=== PATIENT | female | born 1950 | race Caucasian/White ===

== ENCOUNTER → 2017-06-28 14:43 | Outpatient (POV) | payer MEDICARE, SELFPAY | PROVIDERS: Family Provider Family Medicine; PCP Family Medicine; Visit Provider Dermatology | DX: Z00.00 Encounter for general adult medical examination without abnormal findings (principal) ==

== ENCOUNTER → 2017-07-09 09:59 | Outpatient (POV) | payer MEDICARE, SELFPAY | PROVIDERS: Visit Provider Physician Assistant | DX: Z00.00 Encounter for general adult medical examination without abnormal findings (principal) ==

== ENCOUNTER → 2017-10-11 11:56 | Outpatient (CLI) | payer MEDICARE, OTHER, SELFPAY ==
--- NOTE | 2017-10-11 12:03 | XR_ITS ---
XR ankle LT min 3V Ordering Physician: Dominic Kelley MD Patient Age: 67 years: Female HISTORY: ITS.REASON: LEFT ANKLE PAIN AND JOINTS OF LEFT FOOT Ankle pain with history of fracture. TECHNIQUE: 3 views left ankle. COMPARISON :June FINDINGS Previous open are evident of the distal fibula. Metallic plate secured by 5 screws passing through it is seen at the distal fibula and lateral malleolus.. Additional oblique screw is seen at a more AP projection through the distal bone. There appear to be good healing here at the lateral malleolus with no fracture nor loosening.. The ankle mortise appears intact. The medial malleolus intact. Subtalar region unremarkable on plain film. Plantar calcaneal spur measuring 8.5 mm noted. IMPRESSION previous ORIF distal fibular/lateral malleolar fracture. Appearance appears stable since 2012. Stable appearance with Good healing at the fracture site. Ankle mortise well-maintained. No discrete abnormalities. Plantar calcaneal spur.
--- NOTE | 2017-10-11 12:03 | XR_ITS ---
XR wrist RT min 3V Ordering Physician: Dominic Kelley MD Patient Age: 67 years: Female HISTORY: ITS.REASON: RIGHT WRIST PAIN . No injury. Right wrist pain TECHNIQUE: 3 views right wrist COMPARISON :No prior studies FINDINGS Prominent arthritic changes are seen at the first carpal-metacarpal joint. Narrowing sclerosis hypertrophic changes along with some subchondral cysts seen here reflects such. Slight arthritic changes are seen at the articulation between the navicular and the trapezium here at the radial aspect of the wrist. -- There is a relative ulnar negative anatomical variant -this with relative short ulna versus the radius. With this we also see developing e arthritic changes articulation between the radius and this slightly short ulna..-Some hypertrophy features mild sclerosis along with subchondral cystic feature seen here. There are also some other ovoid dystrophic calcifications/ossifications seen posterior to the distal ulna possibly from old injury.- Do not believe they are related to tophi or other such type calcifications but rather a more likely areas of ossification. These may be palpable one measures nearly 1 cm the other slightly smaller compared dorsal to the distal ulna and dorsal wrist The carpals themselves with fairly normal relationships but we do see some scattered cystic changes in part related to degenerative subchondral cyst at the proximal hamate, proximal navicular. 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 Ulnar negative variant noted. ... With this there are Associated arthritic changes where the ulnar now articulates with the distal radius. ... Also some ovoid calcifications or dystrophic calcification posterior to the distal ulna,. These may be palpable 2. Prominent arthritic changes at first carpal-metacarpal joint. Typical arthritic appearance of at this typical site for degenerative arthritic change.. 3. Scattered subchondral, degenerative cyst at the carpals. Carpals with normal relationships otherwise
== END ==
PROVIDERS: PCP Family Medicine; Visit Provider Family Medicine
DX: M25.531 Pain in right wrist (principal); M25.572 Pain in left ankle and joints of left foot
CPT/HCPCS: 73110; 73610

== ENCOUNTER → 2017-11-15 09:33 | Outpatient (CLI) | payer MEDICARE, OTHER, SELFPAY ==
--- NOTE | 2017-11-15 09:35 | XR_ITS ---
XR elbow RT min 3V HISTORY: Pain following injury, follow-up abnormal radiograph with fat pad ITS.REASON: follow up ORDERING PHYSICIAN: Brandon Bhatt MD PATIENT AGE: 67 years COMPARISON: 11/06/2017 FINDINGS: No acute fracture is evident. The displaced anterior fat pad has improved. There is some spurring of the radial neck and the coronoid process. IMPRESSION: No obvious fracture.
== END ==
PROVIDERS: PCP Family Medicine; Visit Provider Orthopaedic Surgery
DX: S53.401A Unspecified sprain of right elbow, initial encounter (principal)
CPT/HCPCS: 73080

== ENCOUNTER → 2017-11-21 10:06 | Outpatient (CLI) | payer MEDICARE, OTHER, SELFPAY ==
[2017-11-21 10:33] LABS: Creatinine,Urine Random 24 mg/dL (20-320)
[2017-11-21 10:40] LABS: Hemoglobin A1C 5.6 % (0.0-7.0)
[2017-11-21 11:04] LABS: Alanine Aminotransferase 33 U/L (12-78); Albumin Level 3.8 gm/dL (3.4-5.0); Albumin/Globulin Ratio 1.1 (1.1-1.8); Alkaline Phosphatase 185 U/L (46-116); Anion Gap 11.2 mEq/L (5-15); Aspartate Amino Transferase 16 U/L (15-37); Bilirubin,Total 0.5 mg/dL (0.2-1.0); Blood Urea Nitrogen 18 mg/dL (7-18); Calcium 9.1 mg/dL (8.5-10.1); Carbon Dioxide 31 mmol/L (21.0-32.0); Chloride 102 mmol/L (98-107); Chol/HDL Ratio 3.5 (1-3.5); Cholesterol 210 mg/dL (140-200); Creatinine,Serum 1.01 mg/dL (0.55-1.02); Estimated Glomerular Filt Rate 54 ml/min (>60); Free T4 (Free Thyroxine) 1.23 ng/dl (0.76-1.46); GFR (African American) 66 ML/MIN (>60); Globulin 3.5 gm/dl (1.3-3.2); Glucose 102 mg/dL (74-106); HDL Cholesterol 60 mg/dL (29-89); LDL Cholesterol 118 mg/dL (0-130); Potassium 4.2 mmoL/L (3.5-5.1); Sodium 140 mmol/L (136-145); Thyroid Stimulating Hormone 1.67 uIU/ml (0.358-3.740); Total Protein,Serum 7.3 gm/dL (6.4-8.2); Triglycerides 161 mg/dL (30-200); VLDL Cholesterol 32 mg/dL (0-40)
[2017-11-23 13:22] LABS: Microalbumin, Urine <3.0 ug/mL (Not Estab.)
== END ==
PROVIDERS: PCP Family Medicine; Visit Provider Family Medicine
DX: E03.9 Hypothyroidism, unspecified (principal); I10 Essential (primary) hypertension; R73.01 Impaired fasting glucose; E78.2 Mixed hyperlipidemia
CPT/HCPCS: 36415; 80053; 80061; 82043; 82570; 83036; 84439; 84443

== ENCOUNTER → 2017-12-07 08:46 | Outpatient (CLI) | payer MEDICARE, OTHER, SELFPAY ==
--- NOTE | 2017-12-07 08:49 | XR_ITS ---
XR elbow RT min 3V HISTORY: Pain following injury, follow-up abnormal radiograph ITS.REASON: follow up ORDERING PHYSICIAN: Brandon Bhatt MD PATIENT AGE: 67 years COMPARISON: 11/15/2017 FINDINGS: There is now evidence of a nondisplaced fracture involving the neck of the radius with some mild sclerosis of the fracture line. No other significant anomalies are evident. IMPRESSION: Nondisplaced transverse fracture of the neck of the radius with mild sclerosis of the fracture site.
== END ==
PROVIDERS: PCP Family Medicine; Visit Provider Orthopaedic Surgery
DX: S53.401A Unspecified sprain of right elbow, initial encounter (principal)
CPT/HCPCS: 73080

== ENCOUNTER → 2018-01-17 08:34 | Outpatient (CLI) | payer MEDICARE, SELFPAY ==
--- NOTE | 2018-01-17 09:00 | MM_ITS ---
MM Dig screening mamm BI w/CAD CAD Screening COMPARISON: Digital mammograms with CAD 01/15/2017 and 01/13/2016 INDICATION: There is no personal or family history of breast cancer there is been previous biopsy for benign disease left breast. TECHNIQUE: Standard CC and MLO images were obtained. R2 CAD reviewed. FINDINGS: Moderate fibroglandular densities are seen in the central portions of both breast and the findings are bilateral and symmetrical. There is a stable benign-appearing nodular density right breast. There is a biopsy clip left breast. There are 2 mole markers left breast. There is no suspicious lesion in either breast and there are no suspicious microcalcifications. IMPRESSION: Fibrofatty parenchyma no suspicious lesion seen BI-RADS Category: 2 Benign Finding(s) RECOMMENDED FOLLOW-UP: 1YR - 1 YEAR FOLLOW-UP (A letter has been sent to the patient regarding results of the study.)
== END ==
PROVIDERS: PCP Family Medicine; Visit Provider Family Medicine
DX: Z12.31 Encounter for screening mammogram for malignant neoplasm of breast (principal)
CPT/HCPCS: 77067

== ENCOUNTER → 2018-08-14 12:11 | Outpatient (CLI) | payer MEDICARE, OTHER, SELFPAY ==
--- NOTE | 2018-08-14 12:16 | XR_ITS ---
XR hip LT 2-3V w/pelvis HISTORY: ITS.REASON: LT HIP PAIN ORDERING PHYSICIAN: Dominic Kelley MD PATIENT AGE: 68 years COMPARISON: None FINDINGS: There are moderate osteoarthritic changes of the left hip with decrease in the joint space along with osteosclerosis and osteophyte formation. No fracture or dislocation. No lytic or blastic change. There is moderate osteoarthritis of the right hip is well with more bony hypertrophy on the right. IMPRESSION: Moderate osteoarthritis of both hips. No acute fracture.
== END ==
PROVIDERS: PCP Family Medicine; Visit Provider Family Medicine
DX: M25.552 Pain in left hip (principal)
CPT/HCPCS: 73502

== ENCOUNTER → 2018-09-23 18:05 | Outpatient (CLI) | payer MEDICARE, OTHER, SELFPAY | PROVIDERS: Visit Provider Podiatrist | DX: L81.9 Disorder of pigmentation, unspecified (principal) | CPT/HCPCS: 87070; 87205 ==

== ENCOUNTER → 2019-01-20 09:15 | Outpatient (CLI) | payer MEDICARE, OTHER, SELFPAY ==
--- NOTE | 2019-01-20 09:23 | MM_ITS ---
PROCEDURE: MM DIG SCREENING MAMM BI W/CAD CLINICAL INDICATION: SCREENING There is no personal or family history of breast cancer. There has been a previous biopsy left breast for benign disease. COMPARISON: [facility] DIG MAMM-SCREEN CHAITANYA from 01/13/2016 [facility] DIG MAMM-SCREEN CHAITANYA W/CAD from 01/15/2017 [facility] MM Dig screening mamm BI w/CAD from 01/17/2018 TECHNIQUE: Standard CC and MLO images were obtained. R2 CAD reviewed. FINDINGS: Moderate fibroglandular densities are seen in the central portions of both breasts and the findings of bilateral and symmetrical. There is a biopsy clip left breast there is a mole marker near the axillary tail left breast. There is a stable tiny nodular benign-appearing density upper-outer quadrant right breast and a similar stable benign-appearing nodular density central portion right breast. There is no suspicious lesion and no suspicious microcalcifications. IMPRESSION: Moderate breast density with no suspicious lesions seen BI-RAD Category: 2 Benign Finding(s) FOLLOW-UP: 1YR 1 Year Follow-up (A letter has been sent to the patient regarding results of the study.) Dictated by: Dr. Kirill Ceja MD 01/21/2019 11:[address] Kirill Ceja MD in [place] 01/21/2019 11:07
--- NOTE | 2019-01-20 09:23 | XR_ITS ---
PROCEDURE: XR DEXA AXIAL SKELETON CLINICAL HISTORY: OSTEOPORSIS COMPARISON: No exams were available for comparison FINDINGS: L1-L4 density has a T-score of -0.1 with a density of 1.168 grams/centimeters sq. Left hip density is 0.889 grams/centimeters sq with T-score -1.1 IMPRESSION: Osteopenia with moderate fracture risk. Treatment advised. Suggest follow-up exam December 2020 Dictated by: Niko Fowler MD 01/20/2019 15:39 Electronically signed by Niko Fowler MD in [place] 01/20/2019 15:39
== END ==
PROVIDERS: PCP Family Medicine; Visit Provider Family Medicine
DX: Z12.31 Encounter for screening mammogram for malignant neoplasm of breast (principal); Z13.820 Encounter for screening for osteoporosis; M81.0 Age-related osteoporosis without current pathological fracture
CPT/HCPCS: 77067; 77080

== ENCOUNTER → 2020-01-22 09:12 | Outpatient (CLI) | payer MEDICARE, SELFPAY ==
--- NOTE | 2020-01-22 09:15 | MM_ITS ---
PROCEDURE: MM DIG SCREENING MAMM BI W/CAD Digital Breast Tomosynthesis Included CLINICAL INDICATION: SCREENING There is no personal or family history of breast cancer. There has been a previous biopsy left breast for benign disease. COMPARISON: MG [facility] DIG MAMM-SCREEN CHAITANYA W/CAD from 01/15/2017 MG [facility] MM Dig screening mamm BI w/CAD from 01/17/2018 MG MM DIG SCREENING MAMM BI W/CAD from 01/20/2019 TECHNIQUE: Standard CC and MLO images and 3D Tomosynthesis was obtained. R2 CAD reviewed. FINDINGS: The breasts are composed primarily of with focal fibroglandular elements in the central portions of both breast. There is a biopsy clip left breast. There is a mole marker low in the axilla left breast. There is a stable tiny nodular benign-appearing density right breast. There is no suspicious lesion in either breast and no suspicious microcalcifications. IMPRESSION: Stable exam with no suspicious lesions seen BI-RAD Category: 2 Benign Finding(s) FOLLOW-UP: 1YR 1 Year Follow-up (A letter has been sent to the patient regarding results of the study.) Dictated by: Dr. Kirill Ceja MD 01/23/2020 10:47 Dr. Kirill Ceja MD in [place] 01/23/2020 10:47
== END ==
PROVIDERS: PCP Family Medicine; Visit Provider Family Medicine
DX: Z12.31 Encounter for screening mammogram for malignant neoplasm of breast (principal)
CPT/HCPCS: 77063; 77067

== ENCOUNTER → 2020-06-28 14:15 | Outpatient (CLI) | payer MEDICARE, SELFPAY ==
--- NOTE | 2020-06-28 14:21 | XR_ITS ---
PROCEDURE: XR KNEE RT 3V CLINICAL INDICATION: ACUTE PAIN OF RT KNEE COMPARISON: CR KNEE3L KNEE-3 VIEWS-LT from 05/25/2015 FINDINGS: No fracture or dislocation. No lytic or blastic change. There is normal mineralization. There are minimal osteoarthritic changes of the medial compartment. Minimal spurring noted of the tibial spines. Other findings:There is a small suprapatellar effusion suspected IMPRESSION: Minimal osteoarthritic change with small knee joint effusion Dictated by: Niko Fowler MD 06/28/2020 14:57 Niko Fowler MD in [place] 06/28/2020 14:57
== END ==
PROVIDERS: PCP Family Medicine; Visit Provider Family Medicine
DX: M25.561 Pain in right knee (principal)
CPT/HCPCS: 73562

== ENCOUNTER → 2021-01-24 09:27 | Outpatient (CLI) | payer MEDICARE, SELFPAY ==
--- NOTE | 2021-01-24 09:28 | MM_ITS ---
PROCEDURE INFORMATION: Exam: MG Bilateral Screening 3D Mammography Exam date and time: 01/24/2021 9:28 AM Age: 70 years old Clinical indication: Encounter for screening mammogram for malignant neoplasm of breast TECHNIQUE: Imaging protocol: Bilateral screening tomosynthesis and 2D mammography including computer-aided detection (CAD) when performed. COMPARISON: 1. MG MM DIG SCREENING MAMM BI W/CAD 01/22/2020 9:36 AM 2. MG MM DIG SCREENING MAMM BI W/CAD 01/20/2019 9:43 AM FINDINGS: MAMMOGRAPHY: Breast composition: The breast tissue is heterogeneously dense, which may obscure small masses. Mass: None. Architectural distortion: None. Calcifications: No suspicious calcifications. Asymmetric density: None. Skin thickening: None. Axillary adenopathy: None. IMPRESSION: No mammographic evidence of malignancy. Annual screening is recommended unless otherwise clinically indicated. ASSESSMENT: BI-RADS Category 1: Negative
== END ==
PROVIDERS: PCP Family Medicine; Visit Provider Family Medicine
DX: Z12.31 Encounter for screening mammogram for malignant neoplasm of breast (principal)
CPT/HCPCS: 77063; 77067

== ENCOUNTER → 2021-07-20 11:48 | Outpatient (CLI) | payer MEDICARE, SELFPAY ==
--- NOTE | 2021-07-20 11:55 | XR_ITS ---
FINAL REPORT CLINICAL HISTORY: PAIN IN LEFT FOOT, top of foot, there is a knot and swelling on top of mid foot, no known injury, ?stress fx FINDINGS: 3 views of the left foot were obtained. There are sideplate and screws securing the distal fibula. There is no acute fracture or dislocation. The joint spaces are intact. There is a moderate plantar spur. The soft tissues are unremarkable. IMPRESSION: No acute process. Reviewed, Interpreted and Dictated by Sanju Ocampo MD Transcribed by Henrik Vyas Authenticated by Sanju Ocampo MD on 07/20/2021 01:32:16 PM [facility]
== END ==
PROVIDERS: PCP Family Medicine; Visit Provider Family Medicine
DX: M79.672 Pain in left foot (principal)
CPT/HCPCS: 73630

== ENCOUNTER → 2022-01-25 09:13 | Outpatient (CLI) | payer MEDICARE, SELFPAY ==
--- NOTE | 2022-01-25 09:16 | MM_ITS ---
PROCEDURE INFORMATION: Exam: MG Bilateral Screening 3D Mammography Exam date and time: 01/25/2022 9:11 AM Age: 71 years old Clinical indication: Screening examination TECHNIQUE: Imaging protocol: Bilateral Screening tomosynthesis and 2D mammography including computer-aided detection (CAD) when performed. COMPARISON: 1. MG MM DIG SCREENING MAMM BI W/CAD 01/24/2021 9:45 AM 2. MG MM DIG SCREENING MAMM BI W/CAD 01/22/2020 9:36 AM 3. MG MM DIG SCREENING MAMM BI W/CAD 01/20/2019 9:43 AM 4. MG [facility] MM Dig screening mamm BI w/CAD 01/17/2018 8:57 AM FINDINGS: MAMMOGRAPHY: Breast composition: The breast is heterogeneously dense, which may obscure small masses. Mass: Stable benign-appearing subcentimeter nodules are present in the bilateral breasts. No new or morphologically suspicious nodule has developed to suggest malignancy. Architectural distortion: No new or suspicious architectural distortion. Calcifications: No new or suspicious calcifications are present Asymmetric density: No new or suspicious asymmetric density is present Skin thickening: None. Axillary adenopathy: None. IMPRESSION: No mammographic evidence of malignancy. Recommend annual screening mammography unless otherwise clinically indicated. ASSESSMENT: BI-RADS category 2: Benign
== END ==
PROVIDERS: PCP Family Medicine; Visit Provider Family Medicine
DX: Z12.31 Encounter for screening mammogram for malignant neoplasm of breast (principal)
CPT/HCPCS: 77063; 77067

== ENCOUNTER → 2023-01-29 08:07 | Outpatient (CLI) | payer MEDICARE, SELFPAY ==
--- NOTE | 2023-01-29 08:11 | MM_ITS ---
PROCEDURE INFORMATION: Exam: MG Bilateral Screening 3D Mammography Exam date and time: 01/29/2023 8:10 AM Age: 72 years old Clinical indication: Screening examination; Family history of breast cancer in daughter; Daughter's age: 44 years TECHNIQUE: Imaging protocol: Bilateral Screening tomosynthesis and 2D mammography including computer-aided detection (CAD) when performed. COMPARISON: 1. MG MM DIG SCREENING MAMM BI W/CAD 01/25/2022 9:11 AM 2. MG MM DIG SCREENING MAMM BI W/CAD 01/24/2021 9:45 AM 3. MG MM DIG SCREENING MAMM BI W/CAD 01/22/2020 9:36 AM 4. MG MM DIG SCREENING MAMM BI W/CAD 01/20/2019 9:43 AM MG DIGMAMMS MAMMOGRAM SCREEN-CHEMICAL LABORATORY CHIEF N/C 01/06/2008 11:27 AM FINDINGS: MAMMOGRAPHY: Breast composition: The breasts are heterogeneously dense, which may obscure small masses. Mass: No suspicious mass. Architectural distortion: None. Calcifications: No suspicious calcifications. Asymmetric density: No developing asymmetry. Skin thickening: None. Axillary adenopathy: None. Other: Left biopsy clip. IMPRESSION: No mammographic evidence of malignancy. Annual screening is recommended unless otherwise clinically indicated. ASSESSMENT: BI-RADS Category 2: Benign
== END ==
PROVIDERS: PCP Family Medicine; Visit Provider Family Medicine
DX: Z12.31 Encounter for screening mammogram for malignant neoplasm of breast (principal)
CPT/HCPCS: 77063; 77067

== ENCOUNTER → 2023-02-14 11:27 | Outpatient (CLI) | payer MEDICARE, SELFPAY ==
[2023-02-14 11:33] LABS: Influenza A, PCR Not Detected (NotDetected); Influenza B, PCR Not Detected (NotDetected)
[2023-02-14 14:16] LABS: Coronavirus 19, PCR Detected (NotDetected)
== END ==
PROVIDERS: PCP Family Medicine; Visit Provider Physician Assistant
DX: U07.1 COVID-19 (principal); R50.9 Fever, unspecified; R42 Dizziness and giddiness; R11.0 Nausea
CPT/HCPCS: 87636

== ENCOUNTER 2024-06-29 14:00 | Emergency (ER) | payer MEDICARE, SELFPAY ==
[2024-06-29 14:09] VITALS: BP 183/94; PULSE 63; RESP 15; TEMP 36.5; O2SAT 95; BMI 37.9
--- NOTE | 2024-06-29 14:25 | HMH.EDGENADL ---
Discharge Plan Disposition Patient Disposition: Home, Self-Care Chief Complaint: Skin/Abscess/Foreign Body Prescriptions Prescriptions: No Action amlodipine 5 mg tablet 5 mg PO Qty: 90 Patient Comments: TAKE 1 TABLET BY MOUTH EVERY DAY losartan 100 mg tablet 100 mg PO Qty: 90 Patient Comments: TAKE 1 TABLET BY MOUTH EVERY DAY cyanocobalamin (vitamin B-12) 500 mcg tablet extended release 500 mcg PO DAILY hydrochlorothiazide 12.5 mg tablet 12.5 mg PO Qty: 90 Patient Comments: TAKE 1 TABLET BY MOUTH EVERY DAY naproxen 500 mg tablet 500 mg PO BID PRN (Reason: pain) bisoprolol-hydrochlorothiazide 1 EACH tablet 1 each PO DAILY levothyroxine 100 MCG tablet 100 mg PO DAILY ranitidine HCl 150 MG capsule 150 mg PO BID Referrals Follow up/Referrals: Dominic Kelley MD [Primary Care Provider] - See instructions Activity Restrictions/Add. Instructions Additional Instructions/Restrictions: At this time it was felt you are safe to be discharged home. If new or worsening symptoms please do not hesitate to return the emergency department. Clinical Impressions Clinical Impression: Tick bite Instructions Patient Instructions: DI for Skin Abscess Print Language Print Language: Russian Discharge ED Provider: Regulo Jenkins General Adult HPI General Chief complaint: Skin/Abscess/Foreign Body Stated complaint: Poss.tick in middle of back Time Seen by Provider: 06/29/24 14:11 Mode of Arrival: Ambulatory Source of Information: Patient Description of Symptoms (Recalled from ER Triage Doc. by RN): patient states she has a tick on her back unsure on how long it has been there History of Present Illness HPI narrative: Patient is 74-year-old female who presents emergency department for evaluation of possible tick bite. Unsure how long it has been on there it is on her back between her shoulder blades under her bra. They have been working outside. No other acute complaints at this time. Specifically no disseminated arthralgias or rashes reported. No chest pain reported. Related Data Home Medications ?Medication ?Instructions ?Recorded ?Confirmed bisoprolol 5 1 each PO DAILY Hypertension 11/06/17 10/17/18 mg-hydrochlorothiazide 6.25 mg tablet levothyroxine 100 mcg tablet 100 mg PO DAILY THYROID 11/06/17 10/17/18 ranitidine HCl 150 mg capsule 150 mg PO BID STOMACH 11/06/17 10/17/18 amlodipine 5 mg tablet 5 mg PO #90 tabs 09/23/18 10/17/18 cyanocobalamin (vitamin B-12) 500 500 mcg PO DAILY 09/23/18 10/17/18 mcg tablet,extended release hydrochlorothiazide 12.5 mg tablet 12.5 mg PO #90 tabs 09/23/18 10/17/18 losartan 100 mg tablet 100 mg PO #90 tabs 09/23/18 10/17/18 naproxen 500 mg tablet 500 mg PO BID PRN pain 09/23/18 10/17/18 Allergies Allergy/AdvReac Type Severity Reaction Status Date / Time codeine (CODEINE) Allergy Mild NA-NAUSEA/V Verified 10/17/18 08:22 OMITING PERRY INHIBITORS Allergy Mild TONGUE Uncoded 12/07/17 09:53 [facility] Disclaimer: The information contained in this section may have been updated after the patient was seen, as this information can be updated by other users. Social History Smoking Status: Never smoker alcohol intake: never current occupational status: retired Travel in the last 8 weeks: None Have you lived/traveled outside [place] in past 30 days?: No Contact w/someone who lives/traveled outside US past 30 days?: No Exposure to someone with infectious disease in past 14 days?: No Do you have a fever (greater than 100.4 F or 38 C)?: No Have you tested positive for COVID-19: No Exposed to someone with COVID-19 in past 14 days?: No Do you have a sore throat?: No Do you have a cough?: No Do you have any weakness?: No Do you have any diarrhea?: No Are you experiencing any unusual bleeding?: No Do you have any muscle aches/pain?: No Do you have any abdominal pain?: No Are you experiencing loss of taste or smell?: No Other Medical History Have you received the Flu Vaccine for this season: Yes Have you received the Pneumonia Vaccine: Yes ROS Obtained: Yes Systems reviewed as appropriate & no additional complaints except as documented Physical Exam General General appearance: alert and in no apparent distress Head Head exam: atraumatic and normocephalic Eye Eye exam: Present PERRL and EOMI ENT ENT exam: Present mucous membranes moist Neck Neck exam: Present normal inspection Chest Chest inspection: Present normal inspection and symmetric chest wall rise Respiratory Respiratory exam: Absent respiratory distress Cardiovascular Cardiovascular exam: Present regular rate and normal rhythm Abdominal Exam Abdominal exam: Present soft; Absent tenderness Back Exam Back exam: Present other (Erythematous papule over the back between the shoulder blades. No surrounding annular rash.) Neurological Exam Neurological exam: Present alert Psychiatric Psychiatric exam: Present normal affect Skin Skin exam: Present warm and dry Medical Decision Making Medical Records Screening: Per USPSTF and CDC recommendations, given the prevalence of disease in our region, it is our hospital?s policy to screen for HIV and viral Hepatitis for all patients aged 18 and over and those with ongoing risk factors. Mike Inquiry Pt receiving controlled substance: No Vital Signs: 06/29/24 14:09 Temperature 97.7 F Temperature Source Oral Pulse Rate [Right] 63 Respiratory Rate 15 Blood Pressure [Right Arm] 183/94 H Blood Pressure Mean [Right Arm] 123 Blood Pressure Source [Right Arm] Manual Cuff/ Palpation Blood Pressure Position [Right Arm] Sitting 02 Sat by Pulse Oximetry 95 Oxygen Delivery Method Room Air Orders (Tests/Meds): ED MEDICATIONS Discontinued Medications Generic Name Dose Route Start Last Admin Trade Name Freq PRN Reason Stop Dose Admin Doxycycline Hyclate 200 mg 06/29/24 14:25 Doxycycline Hycl 100 Mg Tablet PO 06/29/24 14:26 ONCE ONE ORDERS Category Date Time Status HIV Combo Stat Lab 06/29/24 14:18 Ordered Hepatitis C Ab Qual. W/ RFX Stat Lab 06/29/24 14:18 Ordered Medical Decision Narrative: In summary patient is a 74-year-old female with past medical history described above who presents emergency department for evaluation of tick bite. Patient is hemodynamically stable nontoxic-appearing upon arrival, afebrile. Tick was removed by nursing in triage. I inspected the tick they did get all body parts removed. The tick was not engorged. Given this postexposure prophylaxis for tickborne illness will be conducted with doxycycline 200 mg x 1 and full course is not warranted. Workup with labs and imaging was considered but is not needed at this time given no generalized symptoms will be deferred. Patient was discharged in stable condition. Critical Care Critical Care Time Critical Care Time: No
[2024-06-29 14:44] VITALS: BP 155/86; PULSE 16; RESP 15; TEMP 36.9
[2024-06-29] MEDS: DOXYCYCLINE HYCL 100 MG TABLET 200 MG PO (14:49)
--- OUTSIDE RECORDS SUMMARY | 2024-07-03 20:03 | XMS_ITS ---
Author Organization Unknown Allergies, Adverse Reactions and Alerts Date IsAllergic OnsetDate Allergen Reaction Type Severity Manuelito rgyCode Legacyallergictoid ReactionCode ReactionCodeSystemID 06/29 00:00 :00 1 Lisinopri l anaphylax is Aller gy [id number] 06/29 00:00 :00 1 Codeine stomach upset Side Effec ts 06/29 00:00 :00 1 Lisinopri l anaphylax is Aller gy [id number] 06/29 00:00 :00 1 Codeine stomach upset Side Effec ts 06/24 00:00 :00 1 Lisinopri l anaphylax is Aller gy [id number] 06/24 00:00 :00 1 Codeine stomach upset Side Effec ts 06/10 00:00 :00 1 Lisinopri l anaphylax is Aller gy [id number] 06/10 00:00 :00 1 Codeine stomach upset Side Effec ts 06/06 00:00 :00 1 Lisinopri l anaphylax is Aller gy [id number] 06/06 00:00 :00 1 Codeine stomach upset Side Effec ts 06/04 00:00 :00 1 Lisinopri l anaphylax is Aller gy [id number] 06/04 00:00 :00 1 Codeine stomach upset Side Effec ts 01/10 00:00 :00 1 Lisinopri l anaphylax is Aller gy [id number] 01/10 00:00 :00 1 Codeine stomach upset Side Effec ts 01/10 00:00 :00 1 Lisinopri l anaphylax is Aller gy [id number] 01/10 00:00 :00 1 Codeine stomach upset Side Effec ts 12/31 00:00 :00 1 Lisinopri l anaphylax is Aller gy [id number] 12/31 00:00 :00 1 Codeine stomach upset Side Effec ts 12/26 00:00 :00 1 Lisinopri l anaphylax is Aller gy [id number] 12/26 00:00 :00 1 Codeine stomach upset Side Effec ts 12/16 00:00 :00 1 Lisinopri l anaphylax is Aller gy [id number] 12/16 00:00 :00 1 Codeine stomach upset Side Effec ts 12/13 00:00 :00 1 Lisinopri l anaphylax is Aller gy [id number] 12/13 00:00 :00 1 Codeine stomach upset Side Effec ts 11/22 00:00 :00 1 Lisinopri l anaphylax is Aller gy [id number] 11/22 00:00 :00 1 Codeine stomach upset Side Effec ts 11/18 00:00 :00 1 Lisinopri l cough Side Effec ts [id number] 11/18 00:00 :00 1 Codeine 11/13 00:00 :00 1 Lisinopri l cough Side Effec ts [id number] 11/13 00:00 :00 1 Codeine 11/09 00:00 :00 1 Lisinopri l cough Side Effec ts [id number] 11/09 00:00 :00 1 Codeine 09/02 00:00 :00 1 Lisinopri l cough Side Effec ts [id number] 09/02 00:00 :00 1 Codeine 07/03 00:00 :00 1 Lisinopri l cough Side Effec ts [id number] 07/03 00:00 :00 1 Codeine
== END 2024-06-29 14:50 | disposition home or self-care (01) ==
PROVIDERS: Emergency Provider Emergency Medicine; PCP Family Medicine
DX: L53.8 Other specified erythematous conditions (principal); W57.XXXA Bitten or stung by nonvenomous insect and other nonvenomous arthropods, initial encounter
CPT/HCPCS: 99283

== ENCOUNTER 2025-01-01 08:50 | Outpatient (CLI) | payer MEDICARE, SELFPAY ==
--- NOTE | 2025-01-01 09:43 | MM_ITS ---
PROCEDURE INFORMATION: Exam: MG Bilateral Screening 3D Mammography Exam date and time: 01/01/2025 9:53 AM Age: 74 years old Clinical indication: Screening examination TECHNIQUE: Imaging protocol: Bilateral Screening tomosynthesis and 2D mammography including computer-aided detection (CAD) when performed. COMPARISON: MG MM DIG SCREENING MAMM BI W/CAD 01/29/2023 8:10 AM FINDINGS: MAMMOGRAPHY: Breast composition: There are scattered areas of fibroglandular density. Mass: None. Architectural distortion: None. Calcifications: No suspicious calcifications. Asymmetric density: None. Skin thickening: None. Axillary adenopathy: None. IMPRESSION: No mammographic evidence of malignancy. Annual screening is recommended unless otherwise clinically indicated. ASSESSMENT: BI-RADS Category 1: Negative.
--- NOTE | 2025-01-01 09:56 | XR_ITS ---
FINAL REPORT TECHNIQUE: Bone densitometry calculations of the lumbar spine and bilateral hips were obtained. CLINICAL HISTORY: SCREENING COMPARISON: None FINDINGS: Using L1-4, the bone mineral density of the spine is 1.062 g/cm2, corresponding to T-score of 0.1 and a Z score of 2.6. This is within the range of normal. Using the left hip, the bone mineral density of the femoral neck is 0.695 g/cm2, corresponding to a T-score of -1.4 and a Z-score of 0.8. This is within the range of osteopenia. Using the right hip, the bone mineral density of the femoral neck is 0.782 g/cm?, corresponding to a T-score of -0.6 and a Z-score of 1.5. This is within the range of normal. NOTE: T-score: Standard deviation compared with peak bone mass of young adult mean. *Following the recommendations of the International Society of Bone densitometry, classification of hip BMD is based on the lower of two T-scores; total hip or femoral neck. IMPRESSION: 1. Bone mineral density of the lumbar spine and right femoral neck within the range of normal. 2. Bone mineral density of the left femoral neck within the range of osteopenia. Reviewed, Interpreted and Dictated by Siobhan Hernández MD Transcribed by Yesenia Saba Authenticated and [facility]
== END 2025-01-01 23:59 | disposition home or self-care (01) ==
LOC: RAD 08:51
PROVIDERS: PCP Family Medicine; Visit Provider Family Medicine
DX: Z12.31 Encounter for screening mammogram for malignant neoplasm of breast (principal); R92.323 Mammographic fibroglandular density, bilateral breasts; Z13.820 Encounter for screening for osteoporosis; Z78.0 Asymptomatic menopausal state; M85.88 Other specified disorders of bone density and structure, other site
CPT/HCPCS: 77063; 77067; 77080

== ENCOUNTER 2025-02-07 22:57 | Emergency (ER) | payer MEDICARE, SELFPAY ==
--- OUTSIDE RECORDS SUMMARY | 2023-11-10 06:00 | XMS_ITS ---
Author Organization [facility] Address [address] [place] [id number] Care Team Providers Care Rn Liaison Name Role Phone Fortino Kelley Primary Care Provider [phone] FORTINO KELLEY Unavailable Unavailable Allergies Allergen (clinical drug ingredient) Drug/Non Drug Allergy documented on EMR Reaction Allergy Type Onset Date Status lisinopril Lisinopril cough Drug Allergy Activ e codeine Codeine Unknown Drug Allergy Active REASON FOR VISIT high blood pressure Medications Medication SIG (Take, Route, Frequency, Duration) Notes Start Date End Date Status Furosemide 20 MG 1 tab(s) orally once a day as needed; Duration: 30 day(s) 07/20/2021 Active Triamcinolone Acetonide 0.1 % 1 cinda applied topically 3 times a day 07/20/2021 Active Vitamin B 12 500 MCG 2 tab(s) orally onc e a day Active Omeprazole 40 MG 1 cap(s) orally once a day; Duration: 30 day(s) Active Synthroid 100 MCG 1 tab(s) orally once a day; Duration: 90 days Active amLODIPine Besylate 5 MG 2 tab(s) orally once a day Active Irbesartan 300 MG Take 1 tablet by once daily Active Centrum Silver - 1 tab(s) orally once a day; Duration: 30 day(s) Active Bisoprolol-hydroCHLOROthiazi de 5-6.25 MG 3 tablet Orally Once a day Active Loratadine 10 MG 1 tab(s) orally once a day; Duration: 90 days 12/08/2020 Active Vital Signs Weight 231.8 lbs 11/10/2023 Blood pressure systolic 186 mm Hg 11/10/19 24 Blood pressure diastolic 100 mm Hg 024 Heart Rate 65 /min 11/10/2023 Height 66 in 11/10/2023 BMI 37.41 kg/m2 11/10/2023 Encounters Encounter Location Date Provider Diagnosis [facility] [address] [facility] [address] [place] [id number] 11/10/2023 Fortino Kelley Essential hypertensi on I10 Assessments Encounter Date Diagnosis (ICD Code) Assessment Notes Treatment Notes Treatment Clinical Notes Section Notes 11/10/2023 Essential hypertension (ICD-10 - I10) Plan Of Treatment Medication Medication Name Sig Start Date Stop Date Notes amLODIPine Besylate 5 MG 2 tab(s) orally once a day Irbesartan 300 MG Take 1 tablet by ketty th once daily Bisoprolol-hydroCHLOROthiazi de 5-6.25 MG 3 tablet Orally Once a day Next Appt Details Follow Up: 10 days, Reason: Provider Name:Fortino Mike ry, 06/08/2025 09:15:00 AM, [address] [place] [address] [address], [address], [place], [id number], Progress Notes * CRYSTAL ALEXANDEROB:[birth year] (74 yo F)Acc No.[id number]:11/10/2023 Progress Notes 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 :1950 A ge:73 Y S ex:Female Date:11/10/2023 Address:[address] [place] [address] [id number] Subjective: * Chief Complaints: * 1 . High blood pressure. * HPI: C ardiology: 73 year old female presents with c/o Blood Pressure Elevated?Pt presents today with c/o elevated BP readings and vision issues. Pt sts that she was out in the car the other day and started seeing a kaleidoscope like design that appeared to sparkle so she went home and checked her BP and it was high. Pt sts that this happened again this morning and her BP was elevated again. Pt sts that she is concerned about possibly having a stroke. D ermatology: c/o Dry Skin P t would like to discuss her psoriasis as well. Pt sts that she has it in her head and sts that it is bothersome. * ROS: D ERMATOLOGY: no R liya. n o H donna. G ASTROENTEROLOGY: no N ausea. n o V omiting. U ROLOGY: no D ifficulty urinating. n o B lood in urine. * Medical History: H ypertension, Hyperlipidemia, Hypothyroidism, Esophageal Reflux, Vitamin B 12 deficiency, Osteoarthritis, Psoriasis, Colon Polyps. * Surgical History: V aginal Hysterectomy , Cholecystectomy , LT Ankle , Colonoscopy 2015. * Hospitalization/Major Diagno stic Procedure: R T Leg Wound- [facility] ER 07/07/2012, Fall, Fractured RT Elbow - Dr. Bhatt- [facility] ER 11/06/2017. * Family History: F ather: . M other: , cancer. S iblings: diagnosed with Cancer. 4 brother(s) , 2 sister(s) . 2 daughter(s) . . * Social History: C URRENT TOBACCO USE S moking Status: Patient does NOT smoke, Former Smoker: Yes, Quit smokin, Smoking pack year history: 1.5, Second hand smoke exposure: Yes. C affeine: yes, frequency:2 CUPS COFFEE. Exercise: no. Home smoke detector use: yes. Marital Status: . Past smoking status: no, Smoking status: Does not smoke, Former Smoker: Yes, Quit smokin, Smoking pack year history: 1.05. * Medications: T aking Loratadine 10 MG Tablet 1 tab(s) orally once a day , Taking Centrum Silver - Tablet 1 tab(s) orally once a day , Taking Vitamin B 12 500 MCG Tablet 2 tab(s) orally once a day , Taking Triamcinolone Acetonide 0.1 % Cream 1 cinda applied topically 3 times a day , Taking Furosemide 20 MG Tablet 1 tab(s) orally once a day as needed , Taking Irbesartan 300 MG Tablet Take 1 tablet by mouth once daily , Taking amLODIPine Besylate 5 MG Tablet 1 tab(s) orally once a day , Taking Bisoprolol-hydroCHLOROthiazide 5-6.25 MG Tablet TAKE 2 TABLETS BY MOUTH ONCE DAILY FOR 30 DAYS , Taking Synthroid 100 MCG Tablet 1 tab(s) orally once a day , Taking Omeprazole 40 MG Capsule Delayed Release 1 cap(s) orally once a day , Medication List reviewed and reconciled with the patient * Allergies: C odeine, Lisinopril: cough - Side Effects. Objective: * Vitals: W t:231.8, Temp:97.6, BP:186/100, HR:65, Nurse:HETAL, Ht: 66, BMI:37.41. * Examination: G eneral Examination: General Appearance: N AD. H eart: R SR. L ungs:?clear to auscultation. E xtremities: n o leg edema. Assessment: * Assessment: 1. E ssential hypertension - I10 (Primary) Plan: * Treatment: * Procedure Codes: G 2211 Complex e/m visit add on * Follow Up: 1 0 days * Images: Billing Information: * Visit Code: 91255 Office Visit, Est Pt., Level 3. * Procedure Codes: G2211 Complex e/m visit add on. * Electronic signature of Meme Kelley MD on 02/07/2025 at 11:23 PM EST Sign off status: Pending * Provider: Ally Kelley M.D. Date: 0 11/10/2023 Generated for Stephanie braun/Renea/Alexitting on: 1 04/09/2024 11:23 PM EST History and Physical Notes * HPI (History of Present Illness) Category Sub-Category Detail Notes Category Not es Dermatology Dry Skin Pt would like to discuss her psoriasis as well. Pt sts that she has it in her head and sts that it is bothersome Cardiology Blood Pressure Elevated Pt prese nts today with c/o elevated BP readings and vision issues. Pt sts that she was out in the car the other day and started seeing a kaleidoscope like design that appeared to sparkle so she went home and checked her BP and it was high. Pt sts that this happened again this morning and her BP was elevated again. Pt sts that she is concerned about possibly having a stroke Examination Category Sub-Category Detail Notes Category Not es General Examination Heart: RSR Lungs: clear to auscultatio n Extremities: no leg edema General Appearance: NAD
--- OUTSIDE RECORDS SUMMARY | 2023-11-23 04:15 | XMS_ITS ---
Author Organization [facility] Address [address] [place] [address] 36 [facility] [address] [phone] Care Team Providers Care Head Cleaning Porter Name Role Phone Fortino Kelley Primary Care Provider FORTINO KELLEY Unavailable Unavailable Allergies Allergen (clinical drug ingredient) Drug/Non Drug Allergy documented on EMR Reaction Allergy Type Onset Date Status lisinopril Lisinopril anaphylaxis Drug Allergy Act luisa codeine Codeine stomach upset Drug Allergy Act luisa Reason For Referral Diagnosis 1 Psoriasis (L40.9) Referral Organization [facility] Referring Provider First Name Fortino Referring Provider Last Name Warren Referring Provider Speciality Family Pra ctice Referred Organization [facility] Referred Provider Kerri Mckeon Referred Address [address] [place] [address] [phone] Referred Provider Specialty Dermatology General Notes Yesica Thibodeaux 11/23/19 24 9:48:35 AM > 01/29/2024 at 01:50pm; lvm for patient regarding appt date/time Referral Priority Routine REASON FOR VISIT F/U B/P Medications Medication SIG (Take, Route, Frequency, Duration) Notes Start Date End Date Status Bisoprolol-hydroCHLOROthiazi de 5-6.25 MG 4 tablet Orally Once a day Active Synthroid 100 MCG 1 tab(s) orally once a day; Duration: 90 days Active Omeprazole 40 MG 1 cap(s) orally once a day; Duration: 30 day(s) Active Irbesartan 300 MG Take 1 tablet by once daily Active amLODIPine Besylate 5 MG 2 tab(s) orally once a day Active Loratadine 10 MG 1 tab(s) orally once a day; Duration: 90 days 12/08/2020 Active Centrum Silver - 1 tab(s) orally once a day; Duration: 30 day(s) Active Vitamin B 12 500 MCG 2 tab(s) orally onc e a day Active Triamcinolone Acetonide 0.1 % 1 cinda applied topically 3 times a day 07/20/2021 Active Furosemide 20 MG 1 tab(s) orally once a day as needed; Duration: 30 day(s) 07/20/2021 Active Vital Signs Weight 230.8 lbs 11/23/2023 Blood pressure systolic 140 mm Hg 11/23/19 24 Blood pressure diastolic 82 mm Hg 024 Heart Rate 68 /min 11/23/2023 Height 66 in 11/23/2023 BMI 37.25 kg/m2 11/23/2023 Encounters Encounter Location Date Provider Diagnosis [facility] [address] [place] [address] [address] [place], [place] [id number] 11/23/2023 Fortino Kelley Essential hypertensi on I10 and Psoriasis L40.9 Assessments Encounter Date Diagnosis (ICD Code) Assessment Notes Treatment Notes Treatment Clinical Notes Section Notes 11/23/2023 Essential hypertension (ICD-10 - I10) 11/23/2023 Psoriasis (ICD-10 - L40.9) Plan Of Treatment Medication Medication Name Sig Start Date Stop Date Notes Bisoprolol-hydroCHLOROthiazi de 5-6.25 MG 4 tablet Orally Once a day Irbesartan 300 MG Take 1 tablet by ketty th once daily amLODIPine Besylate 5 MG 2 tab(s) orally once a day Referrals Referral Date Details 11/23/2023 11/23/2023, Kerri singleton, [address] [place] [address], [phone], Next Appt Details Follow Up: as scheduled,and prn, Reason: Provider Name:Fortino alberts, 06/08/2025 09:15:00 AM, [address] [place] [address], [address], [place], [place], [phone], Progress Notes * ALEXANDER ROJASOB:[birth year] (74 yo F)Acc No.[id number]:11/23/2023 Progress Notes 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 :1950 A ge:73 Y S ex:Female Date:11/23/2023 Address:[address] [place] [address] [address] [id number] Subjective: * Chief Complaints: * 1 . F/U B/P. * HPI: C ardiology: 73 year old female presents with c/o Blood Pressure Elevated?Pt here to f/u on hypertension. Amlodipine and Bisoprolol-HCTZ i ncreased on 11/09. Pt states she checked bp this morning and it was 149/90. * ROS: D ERMATOLOGY: no R liya. [...] Diagno stic Procedure: R T Leg Wound- [facility] ER 07/07/2012, Fall, Fractured RT Elbow - Dr. Bhatt- [facility] ER 11/06/2017. * Family History: F ather: [...] once a day as needed , Taking Synthroid 100 MCG Tablet 1 tab(s) orally once a day , Taking Omeprazole 40 MG Capsule Delayed Release 1 cap(s) orally once a day , Taking Irbesartan 300 MG Tablet Take 1 tablet by mouth once daily , Taking Bisoprolol-hydroCHLOROthiazide 5-6.25 MG Tablet 3 tablet Orally Once a day , Taking amLODIPine Besylate 5 MG Tablet 2 tab(s) orally once a day , Medication List reviewed and reconciled with the patient * Allergies: C odeine: stomach upset - Side Effects, Lisinopril: anaphylaxis - Allergy. Objective: * Vitals: W t:230.8, Temp:97.9, BP:140/82, HR:68, Nurse:adair, Ht: 66, BMI:37.25. * Examination: C ardiology: General Appearance: p leasant, NAD. H eart sounds: R RR, normal S1, S2. L ungs: c lear, no rales or wheezes. G eneral Examination: Skin: f airly extensive rash in scalp with an overlying silver scale. Assessment: * Assessment: 1. E ssential hypertension - I10 (Primary) 2 . P soriasis - L40.9 ? Plan: * Treatment: 2. P soriasis Referral To:[facility] Reason: * Procedure Codes: G 2211 Complex e/m visit add on * Follow Up: a s scheduled,and prn * Images: Billing Information: * Visit Code: 70962 Office Visit, Est Pt., Level 3. * Procedure Codes: G2211 Complex e/m visit add on. * Electronic signature of Meme Kelley MD on 02/07/2025 at 11:20 PM EST Sign off status: Pending * Provider: Ally Kelley M.D. Date: 0 11/23/2023 Generated for Stephanie braun/Renea/Alexitting on: 04/09/2024 11:20 PM EST History and Physical Notes * HPI (History of Present Illness) Category Sub-Category Detail Notes Category Not es Cardiology Blood Pressure Elevated Pt here to f/u on hypertension. Amlodipine and Bisoprolol-HCTZ increased on 11/09. Pt states she checked bp this morning and it was 149/90 Examination Category Sub-Category Detail Notes Category Not es General Examination Skin: fairly exten sive rash in scalp with an overlying silver scale Cardiology Lungs: clear, no rales or wheezes Heart sounds: RRR, normal S1, S2 General Appearance: pleasant, NAD Consultation Request Notes Referral Date Referring Provider Referred Provider Not es 11/23/2023 Fortino Kelley Audra
--- OUTSIDE RECORDS SUMMARY | 2023-12-14 04:00 | XMS_ITS ---
Author Organization [facility] Address [address] [facility] [address] [phone] Care Team Providers Care Trimmer Meat Name Role Phone Fortino Kelley Primary Care Provider [phone] FORTINO KELLEY Unavailable Unavailable Allergies Allergen (clinical drug ingredient) Drug/Non Drug Allergy documented on EMR Reaction Allergy Type Onset Date Status lisinopril Lisinopril anaphylaxis Drug Allergy Act luisa codeine Codeine stomach upset Drug Allergy Act luisa Results Component Value Reference Range Notes Glucose (In-House) Reviewed date:12/17/2023 10:51:46 AM Interpretation:138 Performing Lab: Notes/Report: 138 blood glucose 138 74 - 106 mg/dL CBC Venipuncture (in house) Reviewed date:12/14/2023 10:26:13 AM Interpretation: Performing Lab: Notes/Report: wbc 6.7 3.5 - 10 lymph 16.7% 15 - 50 mid 4.2% 2 - 15 gran 79.1% 35 - 80 rbc 4.93 3.5 - 5.5 hgb 13.8 11.5 - 16.5 hct 42.4 35 - 55 mcv 86.0 75 - 100 mch 28.0 25 - 35 mchc 32.5 31 - 38 platlet 185 100 - 400 Glycohemoglobin A1c (in hous e) Reviewed date:12/17/2023 10:51:46 AM Interpretation:6 Performing Lab: Notes/Report: 6 glycohemoglobin 6.0% 5 - 6.5 % P-Vitamin B12 Reviewed date:12/17/2023 10:51:46 AM Interpretation: Normal Performing Lab: Notes/Report: Test performed by [facility] [address] [place] [address] , [address], [place] [address] Tray Leiva MD, Dietitian Helper CLIA: [id number] Vitamin B12 6867 811-2046 pg/mL P-Comprehensive Metabolic Pa ivon (CMP) Reviewed date:12/17/2023 10:51:46 AM Interpretation:cl 95, gluc 108, cr 1.02, gfr 57, alk phos 150 Performing Lab: Notes/Report: Test performed by [facility] [address] [place] [address] , [address], [place] [address] Tray Leiva MD, Dietitian Helper CLIA: [id number] Sodium 135 135-145 mmol/L Potassium 3.7 3.5-5.3 mmol/L Chloride 95 97-108 mmol/L CO2 29 22-32 mmol/L Glucose 108 65-99 mg/dL BUN 14 8-23 mg/dL Creatinine 1.02 0.50-1.00 mg/dL Calcium 9.4 8.6-10.4 mg/dL eGFR by Creatinine 57 >59 mL/min/1.73m2 Protein 6.9 6.0-8.3 g/dL Albumin 4.2 3.5-5.3 g/dL Alkaline Phosphatase 150 35-121 IU/L ALT (SGPT) 34 <5-47 IU/L AST (SGOT) 22 <5-40 IU/L Bilirubin, Total 0.4 <0.2-1.2 mg/dL A/G Ratio 1.6 1.1-2.5 P-T4 Free (thyroxine) Reviewed date:12/17/2023 10:51:46 AM Interpretation: Normal Performing Lab: Notes/Report: Test performed by [facility] [address] [place] [address] , [address], [place] [address] Tray Leiva MD, Dietitian Helper CLIA: [id number] Thyroxine Free (free T4) 1.51 0.86-1.76 ng/dL P-Lipid Panel Reviewed date:12/17/2023 10:51:46 AM Interpretation:trigs 155, non-hdl 144 Performing Lab: Notes/Report: Test performed by [facility] [address] [place] [address] , [place] [address] Tray Leiva MD, Dietitian Helper CLIA: [id number] Cholesterol 198 <200 mg/dL Triglycerides 155 <150 mg/dL HDL Cholesterol 54 >39 mg/dL Cholesterol / HDL Ratio 3.67 0.00-4.44 Ratio Non-HDL Cholesterol 144 <130 mg/dL LDL Cholesterol (Calculation) 113 <130 mg/dL LDL Cholesterol Levels* Less than 100 mg/dL Optimal 100 to 129 mg/dL Near Optimal/ Above Optimal 130 to 159 mg/dL Borderline High 160 to 189 mg/dL High 190 mg/dL and above Very High * Categories as recommended by the 2004 ATPIII guidelines LDL/HDL Ratio 2.1 <3.3 Ratio LDL Cholesterol Patient History Test Date: 06/14/2023 LDL Results: 98 Units: mg/dL % Change: - Test Date: 12/14/2023 LDL Results: 113 Units: mg/dL % Change: +15% P-Phosphorus Reviewed date:12/17/2023 10:51:46 AM Interpretation: Normal Performing Lab: Notes/Report: Test performed by [facility], [address] , [address], [place] [address] Tray Leiva MD, Dietitian Helper CLIA: [id number] Phosphorus 2.7 2.5-4.5 mg/dL P-TSH Reviewed date:12/17/2023 10:51:46 AM Interpretation: Normal Performing Lab: Notes/Report: Test performed by [facility], [address] , [address], [place] [address] Tray Leiva MD, Dietitian Helper CLIA: [id number] TSH 1.41 0.43-5.25 mU/L P-Microalbumin/Creatinine, R andom Urine Sample Reviewed date:12/17/2023 10:51:46 AM Interpretation: Normal Performing Lab: Notes/Report: Test performed by [facility], [address] , [address], [place] [address] Tray Leiva MD, Dietitian Helper CLIA: [id number] Albumin/Creatinine Ratio, Urine 6 0-30 ug/m g Microalbumin, Urine, Random 0.3 Creatinine, Urine 46.7 Covid test (in house) Reviewed date:12/14/2023 10:07:21 AM Interpretation:pos Performing Lab: Notes/Report: pos Result: pos REASON FOR VISIT 6 month checkup Medications Medication SIG (Take, Route, Frequency, Duration) Notes Start Date End Date Status Loratadine 10 MG 1 tab(s) orally once a day; Duration: 90 days 12/08/2020 Active Centrum Silver - 1 tab(s) orally once a day; Duration: 30 day(s) Active Synthroid 100 MCG 1 tab(s) orally once a day; Duration: 90 days Active Vitamin B 12 500 MCG 2 tab(s) orally onc e a day Active Promethazine-DM 6.25-15 MG/5ML 5 ml as needed Orally every 6 hrs 12/14/2023 Active Irbesartan 300 MG 1 tablet Orally Once a day; Duration: 90 days Active Omeprazole 40 MG 1 cap(s) orally once a day; Duration: 30 day(s) Active amLODIPine Besylate 5 MG 1 tablet orally once a day; Duration: 90 days Active Bisoprolol Fumarate 10 MG 2 tablet Orall y Once a day; Duration: 90 days 12/14/2023 Active Maxzide-25 37.5-25 MG 1 tablet in the mo rning Orally Once a day; Duration: 90 days 12/14/2023 Active Triamcinolone Acetonide 0.1 % 1 cinda applied topically 3 times a day 07/20/2021 Active Furosemide 20 MG 1 tab(s) orally once a day as needed; Duration: 30 day(s) 07/20/2021 Active Vital Signs Weight 230.2 lbs 12/14/2023 Blood pressure systolic 152 mm Hg 12/14/19 24 Blood pressure diastolic 84 mm Hg 024 Heart Rate 71 /min 12/14/2023 Height 66 in 12/14/2023 BMI 37.15 kg/m2 12/14/2023 Encounters Encounter Location Date Provider Diagnosis [facility] [address] [id number] 12/14/2023 Fortino Kelley Essential hypertensi on I10 ; Mixed hyperlipidemia E78.2 ; Acquired hypothyroidism E03.9 ; Stage 3a chronic kidney disease N18.31 ; Vitamin B12 deficiency E53.8 ; Gastroesophageal reflux disease, esophagitis presence not specified K21.9 ; IFG (impaired fasting glucose) R73.01 and COVID-19 U07.1 Assessments Encounter Date Diagnosis (ICD Code) Assessment Notes Treatment Notes Treatment Clinical Notes Section Notes 12/14/2023 Essential hypertension (ICD-10 - I10) 12/14/2023 Mixed hyperlipidemia (ICD-10 - E78.2) 12/14/2023 Acquired hypothyroidism (ICD-10 - E03.9) 12/14/2023 Stage 3a chronic kidney disease (ICD-10 - N18.31) 12/14/2023 Vitamin B12 deficiency (ICD-10 - E53.8) 12/14/2023 Gastroesophageal reflux disease, esophagitis presence not specified (ICD-10 - K21.9) 12/14/2023 IFG (impaired fasting glucose) (ICD-10 - R73.01) 12/14/2023 COVID-19 (ICD-10 - U07.1) Patient declines Paxlovid Plan Of Treatment Medication Medication Name Sig Start Date Stop Date Notes Synthroid 100 MCG 1 tab(s) orally once a day; Duration: 90 days Promethazine-DM 6.25-15 MG/5ML 5 ml as n eeded Orally every 6 hrs 12/14/2023 Irbesartan 300 MG 1 tablet Orally Once a day; Duration: 90 days amLODIPine Besylate 5 MG 1 tablet orally once a day; Duration: 90 days Bisoprolol Fumarate 10 MG 2 tablet Orall y Once a day; Duration: 90 days 12/14/2023 Maxzide-25 37.5-25 MG 1 tablet in the mo rning Orally Once a day; Duration: 90 days 12/14/2023 Bisoprolol-hydroCHLOROthiazi de 5-6.25 MG 4 tablet Orally Once a day Treatment Notes Assessment Notes COVID-19 Patient declines Anthony lovid Next Appt Details Follow Up: 4 Weeks, Reason: Provider Name:Fortino Mike , 06/08/2025 09:15:00 AM, [address] [facility], [address] , [place], [place], [phone], Progress Notes * ALEXANDER ROJASOB:[birth year] (74 yo F)Acc No.[id number]:12/14/2023 Progress Notes Patient: José Luis BEV ELISE Provider: Ally Kelley M.D. :1950 A ge:73 Y S ex:Female Date:12/14/2023 Address:[address] [place] [address] NMARIANN [id number] Subjective: * Chief Complaints: * 1 . 6 month checkup. * HPI: C ardiology: 73 year old female presents with c/o Blood Pressure Elevated?Pt here for 6 mo f/u on hypertension, states she is doing well and does not have any concerns.? c/o Hyperlipidemia P t is fasting today. E NT/respiratory: c/o cough P t complains of dry without any sputum production cough that started Sunday evening. Associated with fever, nasal congestion, nausea and scratchy throat. 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 * ROS: D ERMATOLOGY: no R liya. [...] Diagno stic Procedure: R T Leg Wound- [facility] ER 07/07/2012, Fall, Fractured RT Elbow - Dr. Bhatt- [facility] 11/06/2017. * Family History: F ather: [...] day , Taking Bisoprolol-hydroCHLOROthiazide 5-6.25 MG Tablet 4 tablet Orally Once a day , Medication List reviewed and reconciled with the patient * Allergies: C odeine: stomach upset - Side Effects, Lisinopril: anaphylaxis - Allergy. Objective: * Vitals: W t:230.2, Temp:98.1, BP:152/84, HR:71, O2 Sat:98% on RA, Nurse:kk, Ht: 66, BMI:37.15. * Examination: G eneral Examination: General Appearance: N AD. H EENT: u nremarkable.?Heart: R SR. L ungs: c lear to auscultation. P eripheral pulses: n ormal (2+) bilaterally. E xtremities: t race bilateral pitting leg edema. Assessment: * Assessment: 1. E ssential hypertension - I10 (Primary) 2 . M ixed hyperlipidemia - E78.2 3 . A cquired hypothyroidism - E03.9 4 . S tage 3a chronic kidney disease - N18.31 5 . V itamin B12 deficiency - E53.8 6 . Gastroesophageal reflux disease, esophagitis presence not specified - K21.9 7 . I FG (impaired fasting glucose) - R73.01 8 . C OVID-19 - U07.1 ? Plan: * Treatment: Value Reference Range A /G Ratio 1.6 1.1-2.5 - * A lbumin 4.2 3.5-5.3 - g/dL * A lkaline Phosphatase 150 H 35-121 - IU/L * A LT (SGPT) 34 <5-47 - IU/L * A ST (SGOT) 22 <5-40 - IU/L * B ilirubin, Total 0.4 <0.2-1.2 - mg/dL * B UN 14 8-23 - mg/dL * C alcium 9.4 8.6-10.4 - mg/dL * C hloride 95 L 97-108 - mmol/L * C O2 29 22-32 - mmol/L * C reatinine 1.02 H 0.50-1.00 - mg/dL * G lucose 108 H 65-99 - mg/dL * P otassium 3.7 3.5-5.3 - mmol/L * S odium 135 135-145 - mmol/L * P rotein 6.9 6.0-8.3 - g/dL * e GFR by Creatinine 57 L >59 - mL/min/1.73m2 * Sulma Morales 12/17/2023 10:51 :39 AM >See phone encounter ?LAB: P-Microalbumin/Creatinine, Random Urine Sample (Collection Date & Time - 12/14/2023 08:30 AM)?Normal* Value Reference Range A lbumin/Creatinine Ratio, Urine 6 0-30 - ug /mg * C reatinine, Urine 46.7 - mg/dL * M icroalbumin, Urine, Random 0.3 - mg/dL * Sulma Morales 12/17/2023 10:51 :39 AM >See phone encounter 2.?Mixed hyperlipidemia?LAB: P-Comprehensive Metabolic Panel (CMP) (Collection Date & Time - 12/14/2023 08:30 AM)?cl 95, gluc 108, cr 1.02, gfr 57, alk phos 150* Value Reference Range A /G Ratio 1.6 1.1-2.5 - * A lbumin 4.2 3.5-5.3 - g/dL * A lkaline Phosphatase 150 H 35-121 - IU/L * A LT (SGPT) 34 <5-47 - IU/L * A ST (SGOT) 22 <5-40 - IU/L * B ilirubin, Total 0.4 <0.2-1.2 - mg/dL * B UN 14 8-23 - mg/dL * C alcium 9.4 8.6-10.4 - mg/dL * C hloride 95 L 97-108 - mmol/L * C O2 29 22-32 - mmol/L * C reatinine 1.02 H 0.50-1.00 - mg/dL * G lucose 108 H 65-99 - mg/dL * P otassium 3.7 3.5-5.3 - mmol/L * S odium 135 135-145 - mmol/L * P rotein 6.9 6.0-8.3 - g/dL * e GFR by Creatinine 57 L >59 - mL/min/1.73m2 * Sulma Morales 12/17/2023 10:51 :39 AM >See phone encounter ?LAB: P-Lipid Panel (Collection Date & Time - 12/14/2023 08:30 AM)?trigs 155, non-hdl 144* Value Reference Range C holesterol / HDL Ratio 3.67 0.00-4.44 - Ratio * C holesterol 198 <200 - mg/dL * H DL Cholesterol 54 >39 - mg/dL * L DL Cholesterol (Calculation) 113 <130 - mg/d L * L DL/HDL Ratio 2.1 <3.3 - Ratio * N on-HDL Cholesterol 144 H <130 - mg/dL * T riglycerides 155 H <150 - mg/dL * Sulma Morales 12/17/2023 10:51 :39 AM >See phone encounter 3.?Acquired hypothyroidism? Refill Synthroid Tablet, 100 MCG, 1 tab(s), orally, once a day, 90 days, 90, Refills 1.?LAB: P-T4 Free (thyroxine) (Collection Date & Time - 12/14/2023 08:30 AM)? Normal* Value Reference Range T hyroxine Free (free T4) 1.51 0.86-1.76 - ng/d L * Sulma Morales 12/17/2023 10:51 :39 AM >See phone encounter ?LAB: P-TSH (Collection Date & Time - 12/14/2023 08:30 AM)?Normal* Value Reference Range T SH 1.41 0.43-5.25 - mU/L * Sulma Morales 12/17/2023 10:51 :39 AM >See phone encounter 4.?Stage 3a chronic kidney disease?LAB: P-Phosphorus (Collection Date & Time - 12/14/2023 08:30 AM)?Normal* Value Reference Range P hosphorus 2.7 2.5-4.5 - mg/dL * Sulma Morales 12/17/2023 10:51 :39 AM >See phone encounter 5.?Vitamin B12 deficiency?LAB: P-Vitamin B12 (Collection Date & Time - 12/14/2023 08:30 AM)?Normal* Value Reference Range V itamin B12 7905 492-0563 - pg/mL * Sulma Morales 12/17/2023 10:51 :39 AM >See phone encounter 6.?IFG (impaired fasting glucose)?LAB: Glucose (In-House) (Collection Date & Time - 12/14/2023)?138* Value Reference Range b lood glucose 138 74 - 106 mg/dL * Antoinette Sidhu 12/14/2023 9:46:38 AM > Sulma Morales 12/17/2023 10:51:39 AM >See phone encounter ?LAB: Glycohemoglobin A1c (in house) (Collection Date & Time - 12/14/2023)?6 * Value Reference Range g lycohemoglobin 6.0% 5 - 6.5 % * Antoinette Sidhu 12/14/2023 9:46:51 AM > Sulma Morales 12/17/2023 10:51:39 AM >See phone encounter 7.?COVID-19? Start Promethazine-DM Syrup, 6.25-15 MG/5ML, 5 ml as needed, Orally, every 6 hrs, 473 mL, Refills 0.?LAB: CBC Venipuncture (in house) (Collection Date & Time - 12/14/2023)* Value Reference Range w bc 6.7 3.5 - 10 * l ymph 16.7% 15 - 50 * m id 4.2% 2 - 15 * g ran 79.1% 35 - 80 * r bc 4.93 3.5 - 5.5 * h gb 13.8 11.5 - 16.5 * h ct 42.4 35 - 55 * m cv 86.0 75 - 100 * m ch 28.0 25 - 35 * m chc 32.5 31 - 38 * p latlet 185 100 - 400 * Antoinette Sidhu 12/14/2023 9:46:25 AM > ?LAB: Covid test (in house) (Collection Date & Time - 12/14/2023)?pos* Value Reference Range R esult: pos * Jodi Gomez 12/14/2023 9:01: 30 AM > , Provider reviewed results while patient in office. Notes: Patient declines Paxlovid?? * Procedure Codes: G 2211 Complex e/[place], [address] COVID TEST IN HOUSE, Modifiers: QW , 79712 GLUCOSE TEST, 07047 GLYCATED HEMOGLOBIN TEST, Modifiers: QW , 57126 CBC WITH AUTO DIFF * Follow Up: 4 Weeks * Images: Billing Information: * Visit Code: 45120 Office Visit, Est Pt., Level 4. * Procedure Codes: G2211 Complex e/[place]. [address] COVID TEST IN HOUSE. Modifiers: QW 23913 GLUCOSE TEST. 86795 GLYCATED HEMOGLOBIN TEST. Modifiers: QW 85944 CBC WITH AUTO DIFF. * Electronic signature of Meme Kelley MD on 02/07/2025 at 11:19 PM EST Sign off status: Pending * Provider: Ally Kelley M.D. Date: 0 12/14/2023 Generated for Stephanie braun/Renea/eTransmitting on: 1 04/09/2024 11:19 PM EST History and Physical Notes * HPI (History of Present Illness) Category Sub-Category Detail Notes Category Not es ENT/respiratory cough Pt complains of dry without any sputum production cough that started Sunday evening. Associated with fever, nasal congestion, nausea and scratchy throat. 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
--- OUTSIDE RECORDS SUMMARY | 2024-01-01 05:15 | XMS_ITS ---
Author Organization [facility] Address [address] [place] [id number] Care Team Providers Care Data Architect Manager Name Role Phone Fortino Kelley Primary Care Provider [phone] FORTINO KELLEY Unavailable Unavailable REASON FOR VISIT FLU SHOT Medications Medication SIG (Take, Route, Frequency, Duration) Notes Start Date End Date Status Omeprazole 40 MG 1 cap(s) orally once a day; Duration: 90 days Active Synthroid 100 MCG 1 tab(s) orally once a day; Duration: 90 days Active Maxzide-25 37.5-25 MG 1 tablet in the mo rning Orally Once a day; Duration: 90 days 12/14/2023 Active Bisoprolol Fumarate 10 MG 2 tablet Orall y Once a day; Duration: 90 days 12/14/2023 Active amLODIPine Besylate 5 MG 1 tablet orally once a day; Duration: 90 days Active Vitamin B 12 500 MCG 2 tab(s) orally onc e a day Active Irbesartan 300 MG 1 tablet Orally Once a day; Duration: 90 days Active Promethazine-DM 6.25-15 MG/5ML 5 ml as needed Orally every 6 hrs 12/14/2023 Active Furosemide 20 MG 1 tab(s) orally once a day as needed; Duration: 30 day(s) 07/20/2021 Active Triamcinolone Acetonide 0.1 % 1 cinda applied topically 3 times a day 07/20/2021 Active Centrum Silver - 1 tab(s) orally once a day; Duration: 30 day(s) Active Loratadine 10 MG 1 tab(s) orally once a day; Duration: 90 days 12/08/2020 Active Immunizations Vaccine Route Administration Date Status Comme nts Fluzone High Dose (65yr and older) IM Intramuscular 01/01/2024 Administered Encounters Encounter Location Date Provider Diagnosis [facility] [address] [facility] 36 [facility] [address] [place] [id number] 01/01/2024 Fortino Kelley Plan Of Treatment Next Appt Details Provider Name:Fortino Mike ry, 06/08/2025 09:15:00 AM, [address] [facility] 36 [facility], [address], [place], [id number], Progress Notes * BHUPINDERBISICECYDeidreALEXANDEROB:[birth year] (74 yo F)Acc No.[id number]:01/01/2024 Patient: REBECA BUTLERUDY Provider: Ally Kelley M.D. :1950 A ge:73 Y S ex:Female Date:01/01/2024 Address:[address] [place] [address] [address], [id number] Subjective: * Chief Complaints: * 1 . FLU SHOT. * Medical History: * Medications: T aking Loratadine 10 MG [...] once a day as needed , Taking Promethazine-DM 6.25-15 MG/5ML Syrup 5 ml as needed Orally every 6 hrs , Taking Irbesartan 300 MG Tablet 1 tablet Orally Once a day , Taking amLODIPine Besylate 5 MG Tablet 1 tablet orally once a day , Taking Bisoprolol Fumarate 10 MG Tablet 2 tablet Orally Once a day , Taking Maxzide-25 37.5-25 MG Tablet 1 tablet in the morning Orally Once a day , Taking Synthroid 100 MCG Tablet 1 tab(s) orally once a day , Taking Omeprazole 40 MG Capsule Delayed Release 1 cap(s) orally once a day , Medication List reviewed and reconciled with the patient Objective: * Vitals: Assessment: Plan: * Treatment: * Immunizations: Fluzone High Dose (65yr and older) : 0.5 mL (Route: Intramuscular) given by PINA Sarah on Right Deltoid * Images: Billing Information: * Visit Code: * Procedure Codes: * Electronic signature of Meme Kelley MD on 02/07/2025 at 11:22 PM EST Sign off status: Pending * Provider: Ally Kelley M.D. Date: Generated for Stephanie braun/Renea/Stephany on: 04/09/2024 11:22 PM EST
--- OUTSIDE RECORDS SUMMARY | 2024-01-11 04:45 | XMS_ITS ---
Author Organization [facility] Address [address] [place] [id number] Care Team Providers Care Automatic Punch Press Operator Name Role Phone Fortino Kelley Primary Care Provider FORTINO KELLEY Unavailable Unavailable Allergies Allergen (clinical drug ingredient) Drug/Non Drug Allergy documented on EMR Reaction Allergy Type Onset Date Status lisinopril Lisinopril anaphylaxis Drug Allergy Act luisa codeine Codeine stomach upset Drug Allergy Act luisa REASON FOR VISIT 4 weeks Medications Medication SIG (Take, Route, Frequency, Duration) Notes Start Date End Date Status Maxzide-25 37.5-25 MG 1 tablet in the mo rning Orally Once a day 12/14/2023 Active Loratadine 10 MG 1 tab(s) orally once a day; Duration: 90 days 12/08/2020 Active Omeprazole 40 MG 1 cap(s) orally once a day; Duration: 90 days Active Ketoconazole 2 % 1 application Donor Specialist ally Once a day 01/11/2024 Active Bisoprolol Fumarate 10 MG 2 tablet Orall y Once a day 12/14/2023 Active Synthroid 100 MCG 1 tab(s) orally once a day; Duration: 90 days Active Furosemide 20 MG 1 tab(s) orally once a day as needed; Duration: 30 day(s) 07/20/2021 Active Triamcinolone Acetonide 0.1 % 1 cinda applied topically 3 times a day 07/20/2021 Active Irbesartan 300 MG 1 tablet Orally Once a day Active amLODIPine Besylate 5 MG 1 tablet orally once a day Active Vitamin B 12 500 MCG 2 tab(s) orally onc e a day Active Centrum Silver - 1 tab(s) orally once a day; Duration: 30 day(s) Active Vital Signs Weight 234.2 lbs 01/11/2024 Blood pressure systolic 160 mm Hg 01/11/20 24 Blood pressure diastolic 82 mm Hg 024 Heart Rate 68 /min 01/11/2024 Height 66 in 01/11/2024 BMI 37.80 kg/m2 01/11/2024 Encounters Encounter Location Date Provider Diagnosis [facility] [address] [place], [place] [phone] 01/11/2024 Fortino Kelley Essential hypertensi on I10 and Rash R21 Assessments Encounter Date Diagnosis (ICD Code) Assessment Notes Treatment Notes Treatment Clinical Notes Section Notes 01/11/2024 Essential hypertension (ICD-10 - I10) BP checks at home have been better, continue current medication 01/11/2024 Rash (ICD-10 - R21) Plan Of Treatment Medication Medication Name Sig Start Date Stop Date Notes Maxzide-25 37.5-25 MG 1 tablet in the mo rning Orally Once a day 12/14/2023 Ketoconazole 2 % 1 application Donor Specialist ally Once a day 01/11/2024 Bisoprolol Fumarate 10 MG 2 tablet Orally Once a day 12/13 Irbesartan 300 MG 1 tablet Orally Once a day amLODIPine Besylate 5 MG 1 tablet orally once a day Treatment Notes Assessment Notes Essential hypertension BP checks at home have been better, continue current medication Next Appt Details Follow Up: 5 Months, Reason: Provider Name:Fortino Mike ry, 06/08/2025 09:15:00 AM, [address] [facility], [address], [place], [place], [phone], Progress Notes * DESIRAEDeidre ALEXANDEROB:[birth year] (74 yo F)Acc No.[id number]:01/11/2024 Progress Notes Patient: REBECA BUTLERUDY Provider: Ally Kelley M.D. :1950 A ge:73 Y S ex:Female Date:01/11/2024 Address:[address] [place] [address] [address] [id number] Subjective: * Chief Complaints: * 1 . 4 weeks. * HPI: C ardiology: 73 year old female presents with c/o Blood Pressure Elevated?Pt here for 4 w [place] f/u on hypertension. Pt started on Maxide 37.5-25mg and Bisoprolol increased to 10mg 12/14/2023. * ROS: D ERMATOLOGY: no R liya. n o H donna. G ASTROENTEROLOGY: no N ausea. n o V omiting. n o D iarrhea.? U ROLOGY: no D ifficulty urinating. n o B lood in urine. * Medical History: H ypertension, Hyperlipidemia, Hypothyroidism, Esophageal Reflux, Vitamin B 12 deficiency, Osteoarthritis, Psoriasis, Colon Polyps. * Surgical History: V aginal Hysterectomy , Cholecystectomy , LT Ankle , Colonoscopy 2015. * Hospitalization/Major Diagno stic Procedure: R T Leg Wound- [facility] ER 07/07/2012, Fall, Fractured RT Elbow - Dr. Bhatt- [facility] ER 11/06/2017. * Family History: [...] needed , Taking Irbesartan 300 MG Tablet 1 [...] 1 cap(s) orally once a day , Discontinued Promethazine-DM 6.25-15 MG/5ML Syrup 5 ml as needed Orally every 6 hrs , Medication List reviewed and reconciled with the patient * Allergies: C odeine: stomach upset - Side Effects, Lisinopril: anaphylaxis - Allergy. Objective: * Vitals: W t:234.2, Temp:97.8, BP:160/82, HR:68, Nurse:adair, Ht: 66, Repeat BP:154/74, BMI:37.80. * Examination: G eneral Examination: General Appearance: N AD. H eart: R SR. L ungs:?clear to auscultation. S kin: r eddened area of skin on the inner portion of the right forearm, raised leading edge and some central clearing. P eripheral pulses: n ormal (2+) bilaterally. E xtremities: t race bilateral pitting leg edema. Assessment: * Assessment: 1. E ssential hypertension - I10 (Primary) 2 . R liya - R21 Plan: * Treatment: 2. R liya Start Ketoconazole Cream, 2 %, 1 application, Externally, Once a day, 30 grams, Refills 0. ? * Procedure Codes: G 2211 Complex e/m visit add on * Follow Up: 5 Months * Images: Billing Information: * Visit Code: 98118 Office Visit, Est Pt., Level 3. * Procedure Codes: G2211 Complex e/m visit add on. * Electronic signature of Meme Kelley MD on 02/07/2025 at 11:20 PM EST Sign off status: Pending * Provider: Ally Kelley M.D. Date: Generated for Stephanie braun/Renea/Stephany on: 04/09/2024 11:20 PM EST History and Physical Notes * HPI (History of Present Illness) Category Sub-Category Detail Notes Category Not es Cardiology Blood Pressure Elevated Pt here for 4 week f/u on hypertension. Pt started on Maxide 37.5-25mg and Bisoprolol increased to 10mg 12/14/2023 Examination Category Sub-Category Detail Notes Category Not es General Examination Heart: RSR Lungs: clear to auscultatio n Extremities: trace bilateral neel ing leg edema General Appearance: NAD Skin: reddened area of ski n on the inner portion of the right forearm, raised leading edge and some central clearing Peripheral pulses: normal (2+) bilatera lly
--- OUTSIDE RECORDS SUMMARY | 2024-06-06 06:00 | XMS_ITS ---
Author Organization [facility] Address [address] [facility] [address] [place] [phone] Care Team Providers Care Vamper Name Role Phone Fortino Kelley Primary Care Provider [phone] FORTINO KELLEY Unavailable Unavailable Allergies Allergen (clinical drug ingredient) Drug/Non Drug Allergy documented on EMR Reaction Allergy Type Onset Date Status lisinopril Lisinopril anaphylaxis Drug Allergy Act luisa codeine Codeine stomach upset Drug Allergy Act luisa Results Component Value Reference Range Notes Glucose (In-House) Reviewed date:06/10/2024 10:20:45 AM Interpretation:113 Performing Lab: Notes/Report: 113 blood glucose 113 74 - 106 mg/dL Glycohemoglobin A1c (in hous e) Reviewed date:06/10/2024 10:20:45 AM Interpretation:5.9% Performing Lab: Notes/Report: 5.9% glycohemoglobin 5.9% 5 - 6.5 % P-Basic Metabolic Panel (BMP ) Reviewed date:06/10/2024 10:20:45 AM Interpretation:gluc 103, Cr 1.17, gfr 48 Performing Lab: Notes/Report: Test performed by [employer], [employer] [facility] , [address], [place] [address] Tray Leiva MD, Territory Manager CLIA: [id number] Sodium 139 135-145 mmol/L Potassium 4.5 3.5-5.3 mmol/L Chloride 101 97-108 mmol/L CO2 27 22-32 mmol/L Glucose 103 65-99 mg/dL BUN 20 8-23 mg/dL Creatinine 1.17 0.50-1.00 mg/dL Calcium 9.9 8.6-10.4 mg/dL eGFR by Creatinine 48 >59 mL/min/1.73m2 P-Phosphorus Reviewed date:06/10/2024 10:20:45 AM Interpretation:Normal Performing Lab: Notes/Report: Test performed by [employer] [address] [place] [address] , [address], [place] [address] Tray Leiva MD, Territory Manager CLIA: [id number] Phosphorus 3.0 2.5-4.5 mg/dL REASON FOR VISIT 5 months Medications Medication SIG (Take, Route, Frequency, Duration) Notes Start Date End Date Status Ketoconazole 2 % 1 gram Externally On ce a day Active Omeprazole 40 MG 1 cap(s) orally once a day; Duration: 90 days Active Synthroid 100 MCG 1 tab(s) orally once a day; Duration: 90 days Active Furosemide 20 MG 1 tab(s) orally once a day as needed; Duration: 30 day(s) 07/20/2021 Active Triamcinolone Acetonide 0.1 % 1 cinda applied topically 3 times a day 07/20/2021 Active Bisoprolol Fumarate 10 MG 2 tablet Orall y Once a day 12/14/2023 Active Vitamin B 12 500 MCG 2 tab(s) orally onc e a day Active Centrum Silver - 1 tab(s) orally once a day; Duration: 30 day(s) Active Loratadine 10 MG 1 tab(s) orally once a day; Duration: 90 days 12/08/2020 Active Irbesartan 300 MG 1 tablet Orally Once a day Active Maxzide-25 37.5-25 MG 1 tablet in the mo rning Orally Once a day 12/14/2023 Active amLODIPine Besylate 5 MG 1 tablet orally once a day Active Vital Signs Weight 236 lbs 06/06/2024 Blood pressure systolic 150 mm Hg 06/07/19 25 Blood pressure diastolic 84 mm Hg 025 Heart Rate 67 /min 06/06/2024 Height 66 in 06/06/2024 BMI 38.09 kg/m2 06/06/2024 Encounters Encounter Location Date Provider Diagnosis [facility] [address] [place], [place] [phone] 06/06/2024 Fortino [place] Essential hypertensi on I10 ; IFG (impaired fasting glucose) R73.01 and Stage 3a chronic kidney disease N18.31 Assessments Encounter Date Diagnosis (ICD Code) Assessment Notes Treatment Notes Treatment Clinical Notes Section Notes 06/06/2024 Essential hypertension (ICD-10 - I10) Not at ogoal today. Blood pressure journal 06/06/2024 IFG (impaired fasting glucose) (ICD-10 - R73.01) 06/06/2024 Stage 3a chronic kidney disease (ICD-10 - N18.31) Plan Of Treatment Medication Medication Name Sig Start Date Stop Date Notes Bisoprolol Fumarate 10 MG 2 tablet Orally Once a day 12/13 Irbesartan 300 MG 1 tablet Orally Once a day Maxzide-25 37.5-25 MG 1 tablet in the mo rning Orally Once a day 12/14/2023 amLODIPine Besylate 5 MG 1 tablet orally once a day Treatment Notes Assessment Notes Essential hypertension Not at ogoal toda y. Blood pressure journal Next Appt Details Follow Up: via phone to repo rt progress, 6 Months, Reason: Provider Name:Fortino Mike ry, 06/08/2025 09:15:00 AM, [address] [facility], [address], [place], [place], [phone], Progress Notes * RUSTY ROJASSALVADOROB:[birth year] (74 yo F)Acc No.[id number]:06/06/2024 Progress Notes 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 :1950 A ge:74 Y S ex:Female Date:06/06/2024 Address:[address] [place] [address] [id number] Subjective: * Chief Complaints: * 1 . 5 months. * HPI: C ardiology: 74 year old female presents with c/o Blood Pressure Elevated?Pt here to f/u on hypertension, states she is doing well and does not have any concerns. c/o Hyperlipidemia P t is fasting today. E ndocrinology: c/o Hypothyroidism P t here to f/u. * ROS: D ERMATOLOGY: no R liya. n o H donna. G ASTROENTEROLOGY: no N ausea. n o V omiting. U ROLOGY: no D ifficulty urinating. n o B lood in urine. * Medical History: H ypertension, Hyperlipidemia, Hypothyroidism, Esophageal Reflux, Vitamin B 12 deficiency, Osteoarthritis, Psoriasis, Colon Polyps, Allergic rhinitis. * Surgical History: V aginal Hysterectomy , Cholecystectomy , LT Ankle , Colonoscopy 2015. * Hospitalization/Major Diagno stic Procedure: R T Leg Wound- [facility] ER 07/07/2012, Fall, Fractured RT Elbow - Dr. Bhatt- [facility] 11/06/2017. * Family History: F ather: [...] cap(s) orally once a day , Taking Ketoconazole 2 % Cream 1 gram Externally Once a day , Taking amLODIPine Besylate 5 MG Tablet 1 tablet orally once a day , Taking Maxzide-25 37.5-25 MG Tablet 1 tablet in the morning Orally Once a day , Taking Bisoprolol Fumarate 10 MG Tablet 2 tablet Orally Once a day , Taking Irbesartan 300 MG Tablet 1 tablet Orally Once a day , Medication List reviewed and reconciled with the patient * Allergies: C odeine: stomach upset - Side Effects, Lisinopril: anaphylaxis - Allergy. Objective: * Vitals: W t:236, Temp:97.8, BP:150/84, HR:67, Nurse:adair, Ht: 66, BMI:38.09. * Examination: G eneral Examination: General Appearance: N AD. H eart: R SR. L ungs:?clear to auscultation. E xtremities: n o leg edema. Assessment: * Assessment: 1. E ssential hypertension - I10 (Primary) 2 . I FG (impaired fasting glucose) - R73.01 3 . S tage 3a chronic kidney disease - N18.31 Plan: * Treatment: Value Reference Range B UN 20 8-23 - mg/dL * C alcium 9.9 8.6-10.4 - mg/dL * C hloride 101 97-108 - mmol/L * C O2 27 22-32 - mmol/L * C reatinine 1.17 H 0.50-1.00 - mg/dL * G lucose 103 H 65-99 - mg/dL * P otassium 4.5 3.5-5.3 - mmol/L * S odium 139 135-145 - mmol/L * e GFR by Creatinine 48 L >59 - mL/min/1.73m2 * Sulma oMrales 06/10/2024 10:20 :27 AM >See phone encounter Notes: Not at ogoal today. Blood pressure journal??2.?IFG (impaired fasting glucose)?LAB: Glucose (In-House) (Collection Date & Time - 06/06/2024)?113* Value Reference Range b lood glucose 113 74 - 106 mg/dL * Jodi Gomez 06/06/2024 2:08: 36 PM > Sulma Morales 06/10/2024 10:20:27 AM >See phone encounter ?LAB: Glycohemoglobin A1c (in house) (Collection Date & Time - 06/06/2024)? 5.9%* Value Reference Range g lycohemoglobin 5.9% 5 - 6.5 % * Jodi Gomez 06/06/2024 2:11: 17 PM > AndrewSulma 06/10/2024 10:20:27 AM >See phone encounter 3.?Stage 3a chronic kidney disease?LAB: P-Basic Metabolic Panel (BMP) (Collection Date & Time - 06/06/2024 09:57 AM)?gluc 103, Cr 1.17, gfr 48* Value Reference Range B UN 20 8-23 - mg/dL * C alcium 9.9 8.6-10.4 - mg/dL * C hloride 101 97-108 - mmol/L * C O2 27 22-32 - mmol/L * C reatinine 1.17 H 0.50-1.00 - mg/dL * G lucose 103 H 65-99 - mg/dL * P otassium 4.5 3.5-5.3 - mmol/L * S odium 139 135-145 - mmol/L * e GFR by Creatinine 48 L >59 - mL/min/1.73m2 * Sulma Morales 06/10/2024 10:20 :27 AM >See phone encounter ?LAB: P-Phosphorus (Collection Date & Time - 06/06/2024 09:57 AM)?Normal* Value Reference Range P hosphorus 3.0 2.5-4.5 - mg/dL * Sulma Morales 06/10/2024 10:20 :27 AM >See phone encounter * Procedure Codes: G 2211 Complex e/[place], [address] GLUCOSE TEST, 91491 GLYCATED HEMOGLOBIN TEST, Modifiers: QW , 3077F SYST BP = 140 MM HG6 IT, 3079F DIAST BP 80-89 MM HG, 3044F HG A1C LEVEL LT 7.0% * Follow Up: v ia phone to report progress, 6 Months * Images: Billing Information: * Visit Code: 86978 Office Visit, Est Pt., Level 4. * Procedure Codes: G2211 Complex e/[place]. [address] GLUCOSE TEST. 00947 GLYCATED HEMOGLOBIN TEST. Modifiers: QW 3077F SYST BP = 140 MM HG6 IT. 3079F DIAST BP 80-89 MM HG. 3044F HG A1C LEVEL LT 7.0%. * Electronic signature of Meme Kelley MD on 02/07/2025 at 11:22 PM EST Sign off status: Pending * Provider: Ally Kelley M.D. Date: 0 06/06/2024 Generated for Stephanie braun/Renea/Stephany on: 1 04/09/2024 11:22 PM EST History and Physical Notes * HPI (History of Present Illness) Category Sub-Category Detail Notes Category Not es Endocrinology Hypothyroidism Pt here to f/u Cardiology Blood Pressure Elevated Pt here to f/u on hypertension, states she is doing well and does not have any concerns Hyperlipidemia Pt is fasting today Examination Category Sub-Category Detail Notes Category Not es General Examination Heart: RSR Lungs: clear to auscultatio n Extremities: no leg edema General Appearance: NAD
--- OUTSIDE RECORDS SUMMARY | 2024-07-02 05:00 | XMS_ITS ---
[facility] [address] [facility] [address] [place] [id number] Care Team Providers [employer] Sales Associate Name Role Phone Fortino Kelley Primary Care Provider [phone] FORTINO KELLEY Unavailable Unavailable Results Component Value Reference Range Notes P-Basic Metabolic Panel (BMP ) Reviewed date:07/03/2024 11:26:26 AM Interpretation:glu 109, creat 1.09, eGFR 53 Performing Lab: Notes/Report: Test performed by [facility], [facility] [address] [place] [address] , [address], [place] [address] Tray Leiva MD, Warehouse Attendant CLIA: [id number] Sodium 137 135-145 mmol/L Potassium 5.0 3.5-5.3 mmol/L Chloride 102 97-108 mmol/L CO2 26 22-32 mmol/L Glucose 109 65-99 mg/dL BUN 20 8-23 mg/dL Creatinine 1.09 0.50-1.00 mg/dL Calcium 10.0 8.6-10.4 mg/dL eGFR by Creatinine 53 >59 mL/min/1.73m2 REASON FOR VISIT blood work Medications Medication SIG (Take, Route, Frequency, Duration) Notes Start Date End Date Status Furosemide 20 MG 1 tab(s) orally once a day as needed; Duration: 30 day(s) 07/20/2021 Active Omeprazole 40 MG 1 cap(s) orally once a day; Duration: 90 days Active Ketoconazole 2 % 1 gram Externally On ce a day Active amLODIPine Besylate 5 MG 1 tablet orally once a day Active Synthroid 100 MCG 1 tab(s) orally once a day; Duration: 90 days Active Vitamin B 12 500 MCG 2 tab(s) orally onc e a day Active Triamcinolone Acetonide 0.1 % 1 cinda applied topically 3 times a day 07/20/2021 Active Irbesartan 300 MG 1 tablet Orally Once a day Active Loratadine 10 MG 1 tab(s) orally once a day; Duration: 90 days 12/08/2020 Active Centrum Silver - 1 tab(s) orally once a day; Duration: 30 day(s) Active Maxzide-25 37.5-25 MG 1 tablet in the mo rning Orally Once a day 12/14/2023 Active Bisoprolol Fumarate 10 MG 2 tablet Orall y Once a day 12/14/2023 Active Encounters Encounter Location Date Provider Diagnosis [facility] [address] [facility] [address] [facility] [address] [place], [place] [id number] 07/02/2024 Fortino Kelley Stage 3a chronic kidney disease N18.31 Assessments Encounter Date Diagnosis (ICD Code) Assessment Notes Treatment Notes Treatment Clinical Notes Section Notes 07/02/2024 Stage 3a chronic kidney disease (ICD-10 - N18.31) Plan Of Treatment Next Appt Details Provider Name:Fortino Mike ry, 06/08/2025 09:15:00 AM, [address] [facility] [address] [facility], [address], [place], [place], [id number], Progress Notes * ALEXANDER ROJASOB:[birth year] (74 yo F)Acc No.[id number]:07/02/2024 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 :1950 A ge:74 Y S ex:Female Date:07/02/2024 Address:[address] [place] [address] [address], [place] [id number] Subjective: * Chief Complaints: * 1 . Blood work. * Medical History: * Medications: T aking amLODIPine Besylate 5 MG Tablet 1 tablet orally once a day , Taking Maxzide-25 37.5-25 MG Tablet 1 tablet in the morning Orally Once a day , Taking Bisoprolol Fumarate 10 MG Tablet 2 tablet Orally Once a day , Taking Irbesartan 300 MG Tablet 1 tablet Orally Once a day , Taking Loratadine 10 MG Tablet 1 tab(s) orally once a day , Taking Centrum Silver - Tablet 1 tab(s) orally once a day , Taking Vitamin B 12 500 MCG Tablet 2 tab(s) orally once a day , Taking Triamcinolone Acetonide 0.1 % Cream 1 icnda applied topically 3 times a day , Taking Furosemide 20 MG Tablet 1 tab(s) orally once a day as needed , Taking Omeprazole 40 MG Capsule Delayed Release 1 cap(s) orally once a day , Taking Ketoconazole 2 % Cream 1 gram Externally Once a day , Taking Synthroid 100 MCG Tablet 1 tab(s) orally once a day , Medication List reviewed and reconciled with the patient Objective: * Vitals: Assessment: * Assessment: 1. S truptifidelia 3a chronic kidney disease - N18.31 Plan: * Treatment: Value Reference Range B UN 20 8-23 - mg/dL * C alcium 10.0 8.6-10.4 - mg/dL * C hloride 102 97-108 - mmol/L * C O2 26 22-32 - mmol/L * C reatinine 1.09 H 0.50-1.00 - mg/dL * G lucose 109 H 65-99 - mg/dL * P otassium 5.0 3.5-5.3 - mmol/L * S odium 137 135-145 - mmol/L * e GFR by Creatinine 53 L >59 - mL/min/1.73m2 * Sherry Dias 07/03/2024 11: 26:20 AM > see TE * Images: Billing Information: * Visit Code: * Procedure Codes: * Electronic signature of Meme Kelley MD on 02/07/2025 at 11:23 PM EST Sign off status: Pending * Provider: Ally Kelley M.D. Date: 0 07/02/2024 Generated for Stephanie braun/Renea/Stephany on: 04/09/2024 11:23 PM EST
--- OUTSIDE RECORDS SUMMARY | 2024-12-08 04:15 | XMS_ITS ---
Author Organization [facility] Address [address] [facility] [address] [phone] Care Team Providers Care Letter Of Credit Document Examiner Name Role Phone Fortino Kelley Primary Care Provider [phone] FORTINO KELLEY Unavailable Unavailable Allergies Allergen (clinical drug ingredient) Drug/Non Drug Allergy documented on EMR Reaction Allergy Type Onset Date Status lisinopril Lisinopril anaphylaxis Drug Allergy Act luisa codeine Codeine stomach upset Drug Allergy Act luisa Results Component Value Reference Range Notes Glycohemoglobin A1c (in hous e) Reviewed date:12/09/2024 12:27:46 PM Interpretation:5.8 Performing Lab: Notes/Report: 5.8 glycohemoglobin 5.8% 5 - 6.5 % P-Vitamin B12 Reviewed date:12/09/2024 12:27:45 PM Interpretation:1363 Performing Lab: Notes/Report: Test performed by [facility] [address] [place] [address] , [address], [place] [address] Tray Leiva MD, [employer] CLIA: [id number] Vitamin B12 [phone] pg/mL P-Comprehensive Metabolic Pa ivon (CMP) Reviewed date:12/09/2024 12:27:45 PM Interpretation:gluc 112, Cr 1.27, gfr 44, slk phos 143 Performing Lab: Notes/Report: Test performed by [facility] [address] [place] [address] , [address], [place] [address] Tray Leiva MD, [employer]ber CLIA: [id number] Sodium 139 135-145 mmol/L Potassium 4.7 3.5-5.3 mmol/L Chloride 102 97-108 mmol/L CO2 26 20-32 mmol/L Glucose 112 65-99 mg/dL BUN 19 8-23 mg/dL Creatinine 1.27 0.50-1.00 mg/dL Calcium 9.4 8.6-10.4 mg/dL eGFR by Creatinine 44 >59 mL/min/1.73m2 Protein 6.8 6.0-8.3 g/dL Albumin 4.3 3.5-5.3 g/dL Alkaline Phosphatase 143 35-121 IU/L ALT (SGPT) 23 <5-47 IU/L AST (SGOT) 17 <5-40 IU/L Bilirubin, Total 0.3 <0.2-1.2 mg/dL A/G Ratio 1.7 1.1-2.5 P-T4 Free (thyroxine) Reviewed date:12/09/2024 12:27:45 PM Interpretation:Normal Performing Lab: Notes/Report: Test performed by [facility] [address] [place] [address] , [place] [id number] Tray Leiva MD, [employer] CLIA: [id number] Thyroxine Free (free T4) 1.55 0.86-1.76 ng/dL P-Lipid Panel Reviewed date:12/09/2024 12:27:46 PM Interpretation:chol 206, trigs 154, non-hdl 158 Performing Lab: Notes/Report: Test performed by [facility] [address] [place] [address] , [place] [address] Tray Leiva MD, [employer] CLIA: [id number] Cholesterol 206 <200 mg/dL Triglycerides 154 <150 mg/dL HDL Cholesterol 48 >39 mg/dL Cholesterol / HDL Ratio 4.29 0.00-4.44 Ratio Non-HDL Cholesterol 158 <130 mg/dL LDL Cholesterol (Calculation) 127 <130 mg/dL LDL Cholesterol Levels* Less than 100 mg/dL Optimal 100 to 129 mg/dL Near Optimal/ Above Optimal 130 to 159 mg/dL Borderline High 160 to 189 mg/dL High 190 mg/dL and above Very High * Categories as recommended by the 2004 ATPIII guidelines LDL/HDL Ratio 2.6 <3.3 Ratio LDL Cholesterol Patient History Test Date: 06/14/2023 LDL Results: 98 Units: mg/dL % Change: - ------- Test Date: 12/14/2023 LDL Results: 113 Units: mg/dL % Change: +15% ------- Test Date: 12/08/2024 LDL Results: 127 Units: mg/dL % Change: +12% P-Phosphorus Reviewed date:12/09/2024 12:27:46 PM Interpretation:Normal Performing Lab: Notes/Report: Test performed by [facility] [address] [facility] , [facility], [place] [address] Tray Leiva MD, Arbor[employer]ber CLIA: [id number] Phosphorus 2.8 2.5-4.5 mg/dL P-TSH Reviewed date:12/09/2024 12:27:46 PM Interpretation:Normal Performing Lab: Notes/Report: Test performed by [facility] [address] [place] [address] , [address], [place] [address] Tray Leiva MD, Ar[employer]ber CLIA: [id number] TSH 0.83 0.43-5.25 mU/L P-Microalbumin/Creatinine, R andom Urine Sample Reviewed date:12/09/2024 12:27:46 PM Interpretation:Normal Performing Lab: Notes/Report: Test performed by [facility] [address] [place] [address] , [address], [place] [address] Tray Leiva MD, [employer]ber CLIA: [id number] Albumin/Creatinine Ratio, Urine <5.11 0-30 ug/mg Microalbumin, Urine, Random <0.3 Creatinine, Urine 58.7 Mammogram Reviewed date:01/15/2025 03:05:38 PM Interpretation:Negative, annual f/u Performing Lab: Notes/Report: Negative, annual f/u result Negative, annual f/u REASON FOR VISIT 6 month check Medications Medication SIG (Take, Route, Frequency, Duration) Notes Start Date End Date Status Ketoconazole 2 % 1 gram Externally On ce a day Active Omeprazole 40 MG 1 cap(s) orally once a day; Duration: 90 days Active Furosemide 20 MG 1 tab(s) orally once a day as needed; Duration: 30 day(s) 07/20/2021 Active Synthroid 100 MCG 1 tab(s) orally once a day Active Maxzide-25 37.5-25 MG 1 tablet in the mo rning Orally Once a day 12/14/2023 Active amLODIPine Besylate 5 MG 1 tablet orally once a day Active Triamcinolone Acetonide 0.1 % 1 cinda applied topically 3 times a day 07/20/2021 Active Vitamin B 12 500 MCG 2 tab(s) orally onc e a day Active Centrum Silver - 1 tab(s) orally once a day; Duration: 30 day(s) Active Loratadine 10 MG 1 tab(s) orally once a day; Duration: 90 days 12/08/2020 Active Bisoprolol Fumarate 10 MG 2 tablet Orall y Once a day 12/14/2023 Active Irbesartan 300 MG 1 tablet Orally Once a day Active Immunizations Vaccine Route Administration Date Status Comme nts Fluzone High Dose (65yr and older) IM Intramuscular 12/08/2024 Administered Problems Problem Type SNOMED Code ICD Code Onset Dates Problem Status W/U Status Risk Notes Problem Obese class II (436907251060 105) BMI 38.0-38.9,leona lt (Z68.38) Active confirmed Problem Obesity (026206741) Obesity (BMI 30-39.9) (E66.9) Active confirmed Vital Signs Weight 237.2 lbs 12/08/2024 Blood pressure systolic 130 mm Hg 12/09/19 25 Blood pressure diastolic 80 mm Hg 025 Heart Rate 70 /min 12/08/2024 Height 66 in 12/08/2024 BMI 38.28 kg/m2 12/08/2024 Encounters Encounter Location Date Provider Diagnosis [facility] [address] [facility] [address] [place] [phone] 12/08/2024 Fortino Kelley Essential hypertensi on I10 ; Acquired hypothyroidism E03.9 ; Vitamin B12 deficiency E53.8 ; Pure hypercholesterolemia E78.00 ; Stage 3a chronic kidney disease N18.31 ; IFG (impaired fasting glucose) R73.01 ; Osteoporosis screening Z13.820 ; Breast cancer screening by mammogram Z12.31 ; Encounter for immunization Z23 ; Mixed hyperlipidemia E78.2 ; BMI 38.0-38.9,adult Z68.38 and Obesity (BMI 30-39.9) E66.9 Assessments Encounter Date Diagnosis (ICD Code) Assessment Notes Treatment Notes Treatment Clinical Notes Section Notes 12/08/2024 Essential hypertensi on (ICD-10 - I10) 12/08/2024 Acquired hypothyroid ism (ICD-10 - E03.9) 12/08/2024 Vitamin B12 deficien cy (ICD-10 - E53.8) 12/08/2024 Pure hypercholesterolemia (ICD-10 - E78.00) 12/08/2024 Stage 3a chronic kid gaye disease (ICD-10 - N18.31) 12/08/2024 IFG (impaired fastin g glucose) (ICD-10 - R73.01) 12/08/2024 Osteoporosis screeni ng (ICD-10 - Z13.820) 12/08/2024 Breast cancer screen ing by mammogram (ICD-10 - Z12.31) 12/08/2024 Encounter for immunization (ICD-10 - Z23) 12/08/2024 Mixed hyperlipidemia (ICD-10 - E78.2) 12/08/2024 BMI 38.0-38.9,adult (ICD-10 - Z68.38) 12/08/2024 Obesity (BMI 30-39.9 ) (ICD-10 - E66.9) Plan Of Treatment Medication Medication Name Sig Start Date Stop Date Notes Synthroid 100 MCG 1 tab(s) orally once a day Maxzide-25 37.5-25 MG 1 tablet in the mo rning Orally Once a day 12/14/2023 amLODIPine Besylate 5 MG 1 tablet orally once a day Bisoprolol Fumarate 10 MG 2 tablet Orally Once a day 12/13 Irbesartan 300 MG 1 tablet Orally Once a day Next Appt Details Follow Up: 6 Months, Reason: Provider Name:Fortino Mike , 06/08/2025 09:15:00 AM, [address] [facility] [address] [facility], [address] , [place], [place], [id number], Progress Notes * ALEXANDER ROJASOB:[birth year] (74 yo F)Acc No.[id number]:12/08/2024 Progress Notes 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 :1950 A ge:74 Y S ex:Female Date:12/08/2024 Address:[address] [place] [address] N, [id number] Subjective: * Chief Complaints: * 1 . 6 month check. * HPI: C ardiology: 74 year old female presents with c/o Blood Pressure Elevated?Pt here for 6 month follow up on Hypertension. Pt states she has no new concerns at this time.? c/o Hyperlipidemia P t is fasting today. * ROS: D ERMATOLOGY: no R liya. [...] Diagno stic Procedure: R T Leg Wound- [facility] 07/07/2012, Fall, Fractured RT Elbow - Dr. Bhatt- [facility] 11/06/2017. * Family History: F [...] tab(s) orally once a day , Taking Maxzide-25 37.5-25 MG Tablet 1 tablet in the morning Orally Once a day , Taking Bisoprolol Fumarate 10 MG Tablet 2 tablet Orally Once a day , Taking Irbesartan 300 MG Tablet 1 tablet Orally Once a day , Taking amLODIPine Besylate 5 MG Tablet 1 tablet orally once a day , Medication List reviewed and reconciled with the patient * Allergies: C odeine: stomach upset - Side Effects, Lisinopril: anaphylaxis - Allergy. Objective: * Vitals: W t: 237.2, Temp: 98.2, BP: 130/80, HR: 70, Nurse: CAROLYNN, Ht: 66, BMI:38.28. * Examination: G eneral Examination: General Appearance: N AD. H EENT: u nremarkable.?Heart: R SR. L ungs: c lear to auscultation. P eripheral pulses: n ormal (2+) bilaterally. E xtremities: t race bilateral pitting leg edema. Assessment: * Assessment: 1. E ssential hypertension - I10 (Primary) 2 . A cquired hypothyroidism - E03.9 3 . V itamin B12 deficiency - E53.8 4 . P ure hypercholesterolemia - E78.00 5 . S tage 3a chronic kidney disease - N18.31 6. I FG (impaired fasting glucose) - R73.01 7 . O steoporosis screening - Z13.820 8 . B reast cancer screening by mammogram - Z12.31 9 .?Encounter for immunization - Z23 1 0. M ixed hyperlipidemia - E78.2 & #160; 1 1. B NC 38.0-38.9,adult - Z68.38 1 2. O besity (BMI 30-39.9) - E66.9 Plan: * Treatment: Value Reference Range A /G Ratio 1.7 1.1-2.5 - * A lbumin 4.3 3.5-5.3 - g/dL * A lkaline Phosphatase 143 H 35-121 - IU/L * A LT (SGPT) 23 <5-47 - IU/L * A ST (SGOT) 17 <5-40 - IU/L * B ilirubin, Total 0.3 <0.2-1.2 - mg/dL * B UN 19 8-23 - mg/dL * C alcium 9.4 8.6-10.4 - mg/dL * C hloride 102 97-108 - mmol/L * C O2 26 20-32 - mmol/L * C reatinine 1.27 H 0.50-1.00 - mg/dL * G lucose 112 H 65-99 - mg/dL * P otassium 4.7 3.5-5.3 - mmol/L * S odium 139 135-145 - mmol/L * P rotein 6.8 6.0-8.3 - g/dL * e GFR by Creatinine 44 L >59 - mL/min/1.73m2 * Sherry Dias 12/09/2024 12: 27:39 PM EDT > See phone encounter ?LAB: P-Microalbumin/Creatinine, Random Urine Sample (Collection Date & Time - 12/08/2024 08:52 AM)?Normal* Value Reference Range A lbumin/Creatinine Ratio, Urine <5.11 0-30 - ug /mg * C reatinine, Urine 58.7 - mg/dL * M icroalbumin, Urine, Random <0.3 - mg/dL * Arun Sherry 12/09/2024 12: 27:39 PM EDT > See phone encounter 2.?Acquired hypothyroidism? Continue Synthroid Tablet, 100 MCG, 1 tab(s), orally, once a day.?LAB: P-T4 Free (thyroxine) (Collection Date & Time - 12/08/2024 08:52 AM)? Normal* Value Reference Range T hyroxine Free (free T4) 1.55 0.86-1.76 - ng/d L * Arun Sherry 12/09/2024 12: 27:39 PM EDT > See phone encounter ?LAB: P-TSH (Collection Date & Time - 12/08/2024 08:52 AM)?Normal* Value Reference Range T SH 0.83 0.43-5.25 - mU/L * ArunSherry mistry 12/09/2024 12: 27:39 PM EDT > See phone encounter 3.?Vitamin B12 deficiency?LAB: P-Vitamin B12 (Collection Date & Time - 12/08/2024 08:52 AM)?1363* Value Reference Range V itamin B12 1363 H 232-1245 - pg/mL * Sherry Dias 12/09/2024 12: 27:39 PM EDT > See phone encounter 4.?Pure hypercholesterolemia?LAB: P-Comprehensive Metabolic Panel (CMP) (Collection Date & Time - 12/08/2024 08:52 AM)?gluc 112, Cr 1.27, gfr 44, slk phos 143* Value Reference Range A /G Ratio 1.7 1.1-2.5 - * A lbumin 4.3 3.5-5.3 - g/dL * A lkaline Phosphatase 143 H 35-121 - IU/L * A LT (SGPT) 23 <5-47 - IU/L * A ST (SGOT) 17 <5-40 - IU/L * B ilirubin, Total 0.3 <0.2-1.2 - mg/dL * B UN 19 8-23 - mg/dL * C alcium 9.4 8.6-10.4 - mg/dL * C hloride 102 97-108 - mmol/L * C O2 26 20-32 - mmol/L * C reatinine 1.27 H 0.50-1.00 - mg/dL * G lucose 112 H 65-99 - mg/dL * P otassium 4.7 3.5-5.3 - mmol/L * S odium 139 135-145 - mmol/L * P rotein 6.8 6.0-8.3 - g/dL * e GFR by Creatinine 44 L >59 - mL/min/1.73m2 * Sherry Dias 12/09/2024 12: 27:39 PM EDT > See phone encounter ?LAB: P-Lipid Panel (Collection Date & Time - 12/08/2024 08:52 AM)?chol 206, trigs 154, non-hdl 158* Value Reference Range C holesterol / HDL Ratio 4.29 0.00-4.44 - Ratio * C holesterol 206 H <200 - mg/dL * H DL Cholesterol 48 >39 - mg/dL * L DL Cholesterol (Calculation) 127 <130 - mg/d L * L DL/HDL Ratio 2.6 <3.3 - Ratio * N on-HDL Cholesterol 158 H <130 - mg/dL * T riglycerides 154 H <150 - mg/dL * Sherry Dias 12/09/2024 12: 27:39 PM EDT > See phone encounter 5.?Stage 3a chronic kidney disease?LAB: P-Phosphorus (Collection Date & Time - 12/08/2024 08:52 AM)?Normal* Value Reference Range P hosphorus 2.8 2.5-4.5 - mg/dL * Sherry Dias 12/09/2024 12: 27:39 PM EDT > See phone encounter 6.?IFG (impaired fasting glucose)?LAB: Glycohemoglobin A1c (in house) (Collection Date & Time - 12/08/2024)? 5.8* Value Reference Range g lycohemoglobin 5.8% 5 - 6.5 % * Antoinette Sidhu 12/08/2024 12:13: 18 PM EDT > Sherry Dias 12/09/2024 12:27:39 PM EDT > See phone encounter 7.?Breast cancer screening by mammogram?Imaging: Mammogram (Performed Date - 01/01/2025)?Negative, annual f/u* Value Reference Range r esult Negative, annual f/u * Yesica Thibodeaux 12/08/2024 11:2 5:49 AM EDT > faxed to [facility] Jodi Wing 01/15/2025 03:05:25 PM EDT >pt informed * Immunizations: Fluzone High Dose (65yr and older) : 0.5 mL (Route: Intramuscular) given by PINA Sarah on Right Arm (Encounter for immunization) * Procedure Codes: G 2211 Complex [place], [address] GLYCATED HEMOGLOBIN TEST, Modifiers: QW , 3044F HG A1C LEVEL LT 7.0%, 1036F TOBACCO NON-USER, G8950 PREHTN/HTN BP DOC INDCD F/U DOC, G8752 MOST RECENT SYSTOLIC BP < 140MM HG, G8754 MOST RECENT DIASTOLIC BP < 90MM HG * Follow Up: 6 Months * Images: Billing Information: * Visit Code: 79108 Office Visit, Est Pt., Level 4. * Procedure Codes: G2211 Complex e/[place]. [address] GLYCATED HEMOGLOBIN TEST. Modifiers: QW 3044F HG A1C LEVEL LT 7.0%. 1036F TOBACCO NON-USER. G8950 PREHTN/HTN BP DOC INDCD F/U DOC. G8752 MOST RECENT SYSTOLIC BP < 140MM HG. G8754 MOST RECENT DIASTOLIC BP < 90MM HG. * Electronic signature of Meme Kelley MD on 02/07/2025 at 11:20 PM EST Sign off status: Pending * Provider: Ally Kelley M.D. Date: 0 12/08/2024 Generated for Stephanie braun/Renea/Stephany on: 04/09/2024 11:20 PM EST History and Physical Notes * HPI (History of Present Illness) Category Sub-Category Detail Notes Category Not es Cardiology Blood Pressure Elevated Pt here for 6 month follow up on Hypertension. Pt states she has no new concerns at this time Hyperlipidemia Pt is fasting today Examination Category Sub-Category Detail Notes Category Not es General Examination HEENT: unremarkable Heart: RSR Lungs: clear to auscultatio n Extremities: trace bilateral neel ing leg edema General Appearance: NAD Peripheral pulses: normal (2+) bilatera lly
--- OUTSIDE RECORDS SUMMARY | 2025-01-01 05:40 | XMS_ITS ---
Author Organization [facility] Address [address] [facility] [address] [place] [phone] Care Team Providers Care Diving Instructor Name Role Phone Fortino Kelley Primary Care Provider [phone] FORTINO KELLEY Unavailable Unavailable Results Component Value Reference Range Notes P-Basic Metabolic Panel (BMP ) Reviewed date:01/02/2025 09:11:21 AM Interpretation:Glu 106, Creat 1.26, eGFR 44 Performing Lab: Notes/Report: Test performed by [id number], [employer] [address] [place] [address] , [address], [place] [address] Tray Leiva MD, Knuckle Bender CLIA: [id number] Sodium 140 135-145 mmol/L Potassium 4.6 3.5-5.3 mmol/L Chloride 102 97-108 mmol/L CO2 27 20-32 mmol/L Glucose 106 65-99 mg/dL BUN 22 8-23 mg/dL Creatinine 1.26 0.50-1.00 mg/dL Calcium 9.8 8.6-10.4 mg/dL eGFR by Creatinine 44 >59 mL/min/1.73m2 REASON FOR VISIT lab draw Medications Medication SIG (Take, Route, Frequency, Duration) Notes Start Date End Date Status Maxzide-25 37.5-25 MG 1 tablet in the mo [facility] Orally Once a day 12/14/2023 Active Omeprazole 40 MG Take 1 capsule by [facility] once daily for 90 days; Duration: 90 Active amLODIPine Besylate 5 MG 1 tablet orally once a day; Duration: 90 days Active Irbesartan 300 MG 1 tablet Orally Once a day Active Bisoprolol Fumarate 10 MG 2 tablet Orall y Once a day 12/14/2023 Active Furosemide 20 MG 1 tab(s) orally once a day as needed; Duration: 30 day(s) 07/20/2021 Active Triamcinolone Acetonide 0.1 % 1 cinda applied topically 3 times a day 07/20/2021 Active Vitamin B 12 500 MCG 2 tab(s) orally onc e a day Active Synthroid 100 MCG 1 tab(s) orally once a day Active Ketoconazole 2 % 1 gram Externally On ce a day Active Centrum Silver - 1 tab(s) orally once a day; Duration: 30 day(s) Active Loratadine 10 MG 1 tab(s) orally once a day; Duration: 90 days 12/08/2020 Active Encounters Encounter Location Date Provider Diagnosis [facility] [address] [facility] [address] [facility] [address] [place], [place] [id number] 01/01/2025 Fortino Kelley Stage 3a chronic kidney disease N18.31 Assessments Encounter Date Diagnosis (ICD Code) Assessment Notes Treatment Notes Treatment Clinical Notes Section Notes 01/01/2025 Stage 3a chronic kidney disease (ICD-10 - N18.31) Plan Of Treatment Next Appt Details Provider Name:Fortino Mike , 06/08/2025 09:15:00 AM, [address] [facility] [address] [facility], [address], [place], [place], [phone], Progress Notes * ALEXANDER ROJASOB:[birth year] (74 yo F)Acc No.[id number]:01/01/2025 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 :1950 A ge:74 Y S ex:Female Date:01/01/2025 Address:[address] [place] [address] N, [id number] Subjective: * Chief Complaints: * 1 . Lab draw. * Medical History: * Medications: T aking [...] once a day as needed , Taking Ketoconazole 2 % Cream 1 [...] tablet orally once a day , Taking Omeprazole 40 MG Capsule Delayed Release Take 1 capsule by mouth once daily for 90 days , Medication List reviewed and reconciled with the patient Objective: * Vitals: Assessment: * Assessment: 1. S racquel 3a chronic kidney disease - N18.31 (Primary) Plan: * Treatment: Value Reference Range B UN 22 8-23 - mg/dL * C alcium 9.8 8.6-10.4 - mg/dL * C hloride 102 97-108 - mmol/L * C O2 27 20-32 - mmol/L * C reatinine 1.26 H 0.50-1.00 - mg/dL * G lucose 106 H 65-99 - mg/dL * P otassium 4.6 3.5-5.3 - mmol/L * S odium 140 135-145 - mmol/L * e GFR by Creatinine 44 L >59 - mL/min/1.73m2 * Sherry Dias 01/02/2025 09 :11:12 AM EDT > See phone encounter * Images: Billing Information: * Visit Code: * Procedure Codes: * Electronic signature of Meme Kelley MD on 02/07/2025 at 11:21 PM EST Sign off status: Pending * Provider: Ally Kelley M.D. Date: Generated for Stephanie braun/Renea/Stephany on: 04/09/2024 11:21 PM EST
[2025-02-07 23:08] VITALS: BP 193/82; PULSE 57; RESP 18; TEMP 36.9; O2SAT 100; BMI 38.4
[2025-02-07 23:21] LABS: Microscopic, Urine URINE MICROSCOPIC (MICROSCOPIC)
--- OUTSIDE RECORDS SUMMARY | 2025-02-07 23:21 | XMS_ITS ---
Author Organization Unknown ENCOUNTERS Encounter Performer Location Date Diagnosis Diagnosis Status Emergency [place] [address] [place] [address] [phone] Pre Admit [place] [address] [place] [address] [phone] Pre Admit [place] [address] [place] [phone] Emergency [place] [address] [place] [phone] KANU *Note: Encounters from your own facility or health system may be excluded. Allergies, Adverse Reactions, Alerts Allergen Type Severity Identification Date codeine drug allergy 2 [id number] Medications Name Date Quantity Days Supplied GPI Number
[2025-02-07 23:22] LABS: Bilirubin,Urine Negative (Negative); Color,Urine YELLOW (Yellow); Glucose,Urine (UA) Negative (Negative); Ketones,Urine Negative (Negative); Leukocyte Esterase,Urine 2+ (Negative); PH,Urine 6.0 (5.0-8.5); Protein,Urine Negative (Negative); Specific Gravity, Urine 1.010 (1.005-1.030); Urobilinogen,Urine 0.2 EU/dl (0.2)
--- OUTSIDE RECORDS SUMMARY | 2025-02-07 23:24 | XMS_ITS | Patient Health Record ---
[facility] Address [address] [facility] [address] [place] [id number] Care Team Providers Care Dial Mounter Name Role Phone Fortino Kelley Primary Care [...] 48 Performing Lab: Notes/Report: Test performed by [facility] , [address], [place] [address] Tray Leiva MD, [employer] CLIA: [id number] Sodium 139 135-145 mmol/L Potassium 4.5 3.5-5.3 mmol/L Chloride 101 97-108 mmol/L CO2 27 22-32 mmol/L Glucose 103 65-99 mg/dL BUN 20 8-23 mg/dL Creatinine 1.17 0.50-1.00 mg/dL Calcium 9.9 8.6-10.4 mg/dL eGFR by Creatinine 48 >59 mL/min/1.73m2 P-Phosphorus Reviewed date:06/10/2024 10:20:45 AM Interpretation:Normal Performing Lab: Notes/Report: Test performed by [employer] [address] , [address], [place] [address] Tray Leiva MD, [employer] CLIA: [id number] Phosphorus 3.0 2.5-4.5 mg/dL P-Basic Metabolic Panel (BMP ) Reviewed date:07/03/2024 11:26:26 AM Interpretation:glu 109, creat 1.09, eGFR 53 Performing Lab: Notes/Report: Test performed by [employer] [address] , [address], [place] [address] Tray Leiva MD, [employer] CLIA: [id number] Sodium 137 135-145 mmol/L Potassium 5.0 3.5-5.3 mmol/L Chloride 102 97-108 mmol/L CO2 26 22-32 mmol/L Glucose 109 65-99 mg/dL BUN 20 8-23 mg/dL Creatinine 1.09 0.50-1.00 mg/dL Calcium 10.0 8.6-10.4 mg/dL eGFR by Creatinine 53 >59 mL/min/1.73m2 Glycohemoglobin A1c (in hous e) Reviewed date:12/09/2024 12:27:46 PM Interpretation:5.8 Performing Lab: Notes/Report: 5.8 glycohemoglobin 5.8% 5 - 6.5 % P-Vitamin B12 Reviewed date:12/09/2024 12:27:45 PM Interpretation:1363 Performing Lab: Notes/Report: Test performed by [employer] [address] , [address], [place] [address] Tray Leiva MD, [employer] CLIA: [id number] Vitamin B12 0879 380-6480 pg/mL P-Comprehensive Metabolic Pa ivon (CMP) Reviewed date:12/09/2024 12:27:45 PM Interpretation:gluc 112, Cr 1.27, gfr 44, slk phos 143 Performing Lab: Notes/Report: Test performed by [employer] [address] , [address], [place] [address] Tray Leiva MD, [employer] Developer CLIA: [id number] Sodium 139 135-145 mmol/L Potassium 4.7 3.5-5.3 [...] Interpretation:Normal Performing Lab: Notes/Report: Test performed by [facility] [employer] [address] [place] [address] , [place] [address] Tray Leiva MD, [employer] Developer CLIA: [id number] Thyroxine Free (free T4) 1.55 0.86-1.76 ng/dL P-Lipid Panel Reviewed date:12/09/2024 12:27:46 PM Interpretation:chol 206, trigs 154, non-hdl 158 Performing Lab: Notes/Report: Test performed by [facility] [employer] [address] [place] [address] , [place] [id number] Tray Leiva MD, [employer] Developer CLIA: [id number] Cholesterol 206 <200 mg/dL Triglycerides 154 <150 [...] Interpretation:Normal Performing Lab: Notes/Report: Test performed by [employer] [address] , [address], [place] [address] Tray Leiva MD, [employer] CLIA: [id number] Phosphorus 2.8 2.5-4.5 mg/dL P-TSH Reviewed date:12/09/2024 12:27:46 PM Interpretation:Normal Performing Lab: Notes/Report: [facility] , [address], [place] [address] Tray Leiva MD, [employer] CLIA: [id number] TSH 0.83 0.43-5.25 mU/L P-Microalbumin/Creatinine, R andom Urine Sample Reviewed date:12/09/2024 12:27:46 PM Interpretation:Normal Performing Lab: Notes/Report: Test performed by [facility] [employer] [address] , [address], [place] [address] Tray Leiva MD, [employer] CLIA: [id number] Albumin/Creatinine Ratio, Urine <5.11 0-30 ug/mg Microalbumin, Urine, Random <0.3 Creatinine, Urine 58.7 Mammogram Reviewed date:01/15/2025 03:05:38 PM Interpretation:Negative, annual f/u Performing Lab: Notes/Report: Negative, annual f/u result Negative, annual f/u P-Basic Metabolic Panel (BMP ) Reviewed date:01/02/2025 09:11:21 AM Interpretation:Glu 106, Creat 1.26, eGFR 44 Performing Lab: Notes/Report: Test performed by [facility] [employer] [address] , [address], [place] [address] Tray Leiva MD, [employer] Developer CLIA: [id number] Sodium 140 135-145 mmol/L Potassium 4.6 3.5-5.3 mmol/L Chloride 102 97-108 mmol/L CO2 27 20-32 mmol/L Glucose 106 65-99 mg/dL BUN 22 8-23 mg/dL Creatinine 1.26 0.50-1.00 mg/dL Calcium 9.8 8.6-10.4 mg/dL eGFR by Creatinine 44 >59 mL/min/1.73m2 [facility]EX[facility] Hip and Spine Reviewed date:01/02/2025 09:11:21 AM Interpretation:Osteopenia Performing Lab: Notes/Report: Osteopenia Medications Medication SIG (Take, Route, Frequency, Duration) Notes Start Date End Date Status Furosemide 20 MG 1 tab(s) orally once a day as needed; Duration: 30 day(s) 07/20/2021 Active amLODIPine Besylate 5 MG 1 tablet orally once a day; Duration: 90 days Active Triamcinolone Acetonide 0.1 % 1 cinda applied topically 3 times a day 07/20/2021 Active Vitamin B 12 500 MCG 2 tab(s) orally onc e a day Active Centrum Silver - 1 tab(s) orally once a day; Duration: 30 day(s) Active Irbesartan 300 MG 1 tablet Orally Once a day; Duration: 90 days Active Synthroid 100 MCG 1 tab(s) orally once a day Active Maxzide-25 37.5-25 MG 1 tablet in the [facility] Orally Once a day; Duration: 90 days 12/14/2023 Active Ketoconazole 2 % 1 gram Externally On ce a day Active Bisoprolol Fumarate 10 MG 2 tablet Orall y Once a day; Duration: 90 days 12/14/2023 Active Loratadine 10 MG 1 tab(s) orally once a day; Duration: 90 days 12/08/2020 Active Omeprazole 40 MG Take [facility] capsule [facility] daily for 90 days; Duration: 90 Active Immunizations Vaccine Route Administration Date Status Comme nts xFluzone Intradermal (18-64yrs)-trivalent IM Intramuscular 12/07/2011 Administered xFluzone High Dose-private (65yr&older) IM Intramuscular 12/17/2013 Administered xFluzone High Dose-private (65yr&older) Unknown 11/21/2016 Administered xFluzone High Dose-private (65yr&older) Unknown 11/19/2017 Administered xFluzone High Dose-private (65yr&older) Unknown 12/18/2018 Administered xFluzone High Dose-private (65yr&older) Unknown 12/17/2019 Administered xFluzone (6mos and older)-trivalent IM Intramuscular 01/12/2010 Administered xFluzone (6mos and older)-trivalent IM Intramuscular 12/11/2012 Administered xFlu shot-36 months and older IM Intramuscular 01/25/2006 Administered xFlu shot-36 months and older IM Intramuscular 01/09/2007 Administered xFlu shot-36 months and older IM Intramuscular 01/13/2008 Administered xFlu shot-36 months and older IM Intramuscular 11/25/2008 Administered xFlu shot-36 months and older IM Intramuscular 12/26/2010 Administered Tetanus Tdap-Adacel (over 7yrs) IM Intramuscular 11/23/2015 Administered Prevnar (PCV20) IM Intramuscular 06/08/2022 Administered Prevnar (PCV13) IM Intramuscular 06/19/2014 Administered PNEUMOVAX 23 VACCINE IM Intramuscular 11/21/2016 Administe red PNEUMOVAX 23 VACCINE IM Intramuscular 12/08/2021 Administe red Fluzone High Dose (65yr and older) IM Intramuscular 11/25/2014 Administered Fluzone High Dose (65yr and older) IM Intramuscular 12/29/2015 Administered Fluzone High Dose (65yr and older) IM Intramuscular 11/21/2016 Administered Fluzone High Dose (65yr and older) IM Intramuscular 11/19/2017 Administered Fluzone High Dose (65yr and older) IM Intramuscular 12/18/2018 Administered Fluzone High Dose (65yr and older) IM Intramuscular 12/17/2019 Administered Fluzone High Dose (65yr and older) IM Intramuscular 12/08/2020 Administered Fluzone High Dose (65yr and older) IM Intramuscular 12/08/2021 Administered Fluzone High Dose (65yr and older) IM Intramuscular 12/13/2022 Administered Fluzone High Dose (65yr and older) IM Intramuscular 01/01/2024 Administered Fluzone High Dose (65yr and older) IM Intramuscular 12/08/2024 Administered COVID 19 Oliver Unknown 06/30/2020 Administered Problems Problem Type SNOMED Code ICD Code Onset Dates Problem Status W/U Status Risk Notes Problem Vitamin B12 deficiency (075527454) Vitamin B12 deficiency (E53.8) Active confirmed Problem Essential hypertension (36370445) Essential hypertension (I10) Active confirmed Problem Psoriasis (8308085) Psoriasis (L40.9) Active co nfirmed Problem Mixed hyperlipidemia (591657062) Mixed hyperlipidemia (E78.2) Active confirmed Problem Obesity (352579212) Obesity (BMI 30-39.9) (E66.9) Active confirmed Problem Acquired hypothyroidism (046982034) Acquired hypothyroidism (E03.9) Active confirmed Problem Gastroesophageal reflux disease (730178934) Gastroesophageal reflux disease, esophagitis presence not specified (K21.9) Active confirmed Problem Neoplasm of skin of back (594865663) 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) Active confirmed Problem Obese class II (704037002206119) BMI 38.0-38.9,adult (Z68.38) Active confirmed Problem Impaired fasting glycaemia (686578417) IFG (impaired fasting glucose) (R73.01) Active confirmed Problem Pure hypercholesterolemia (433003038) Pure hypercholesterolemia (E78.00) Active confirmed Problem Allergic rhinitis (20185291) Allergic rhinitis, unspecified seasonality, unspecified trigger (J30.9) Active confirmed Problem Chronic kidney disease stage 3A (839235495) Stage 3a chronic kidney disease (N18.31) Active confirmed Vital Signs Heart Rate 70 /min 12/08/2024 Blood pressure diastolic 80 mm Hg 12/08/2024 Height 66 in 12/08/2024 Blood pressure systolic 130 mm Hg 12/08/2024 Weight 237.2 lbs 12/08/2024 BMI 38.28 kg/m2 12/08/2024 Encounters Encounter Location Date Provider Diagnosis [facility] [address] [facility] [address] [place], [place] [id number] 06/06/2024 Fortino Tivoli Essential hypertensi on I10 ; IFG (impaired fasting glucose) R73.01 and Stage 3a chronic kidney disease N18.31 [facility] [address] [facility] [address] [facility] [address] [place], [place] [id number] 07/02/2024 Fortino Tivoli Stage 3a chronic kid gaye disease N18.31 [facility] [address] [facility] [address] [place], [place] [id number] 12/08/2024 Fortino Tivoli Essential hypertensi on I10 ; Acquired hypothyroidism E03.9 ; Vitamin B12 deficiency E53.8 ; Pure hypercholesterolemia E78.00 ; Stage 3a chronic kidney disease N18.31 ; IFG (impaired fasting glucose) R73.01 ; Osteoporosis screening Z13.820 ; Breast cancer screening by mammogram Z12.31 ; Encounter for immunization Z23 ; Mixed hyperlipidemia E78.2 ; BMI 38.0-38.9,adult Z68.38 and Obesity (BMI 30-39.9) E66.9 [facility] [address] [place], [place] [id number] 01/01/2025 Fortino Tivoli Stage 3a chronic kid gaye disease N18.31 [facility] [address] [place], [place] [id number] 06/10/2024 Fortino Tivoli [facility] [address] [place] [id number] 07/03/2024 Fortino Tivoli [facility] [address] [place] [id number] 10/03/2024 Fortino Tivoli [facility] [address] [place], [place] [id number] 12/09/2024 Fortino Tivoli [facility] [address] [place], [place] [id number] 01/02/2025 Fortino Tivoli [facility] [address] [place], [place] [id number] 06/04/2024 Fortino Tivoli Essential hypertensi on I10 [facility] [address] [place], [place] [id number] 06/24/2024 Fortino Tivoli Acquired hypothyroid ism E03.9 [facility] [address] [place] [id number] 07/02/2024 Fortino Tivoli Acquired hypothyroid ism E03.9 [facility] [address] [place], [place] [id number] 07/08/2024 Fortino Tivoli Essential hypertensi on I10 [facility] [address] [place], [place] [id number] 11/04/2024 Fortino Tivoli Essential hypertensi on I10 [facility] [address] [place], [place] [id number] 01/06/2025 Fortino Tivoli Essential hypertensi on I10 [facility] [address] [place], [place] [id number] 02/05/2025 Fortino Kelley Essential hypertensi on I10 Assessments Encounter Date Diagnosis (ICD Code) Assessment Notes Treatment Notes Treatment Clinical Notes Section Notes 02/05/2025 Essential hypertensi on (ICD-10 - I10) 01/06/2025 Essential hypertensi on (ICD-10 - I10) 01/01/2025 Stage 3a chronic kid gaye disease (ICD-10 - N18.31) 12/08/2024 Essential hypertensi on (ICD-10 - I10) 12/08/2024 Acquired hypothyroid ism (ICD-10 - E03.9) 11/04/2024 Essential hypertensi on (ICD-10 - I10) 07/08/2024 Essential hypertensi on (ICD-10 - I10) 07/02/2024 Acquired hypothyroid ism (ICD-10 - E03.9) 06/24/2024 Acquired hypothyroid ism (ICD-10 - E03.9) 06/06/2024 Essential hypertensi on (ICD-10 - I10) Not at ogoal today. Blood pressure journal 06/06/2024 IFG (impaired fastin g glucose) (ICD-10 - R73.01) 06/04/2024 Essential hypertensi on (ICD-10 - I10) 06/06/2024 Stage 3a chronic kid gaye disease (ICD-10 - N18.31) 07/02/2024 Stage 3a chronic kid gaye disease (ICD-10 - N18.31) 12/08/2024 Vitamin B12 deficien cy (ICD-10 - [...] ) (ICD-10 - E66.9) Plan Of Treatment Pending Test Test Name Order Date LC-PTH intact 08/31/2021 Next Appt Details Provider Name:Fortino Ruiz Rashid alberts, 06/08/2025 09:15:00 AM, [address] [facility] [address], [place], [place], [id number], Insurance Providers Payer Name Payer Address Payer Phone Subscriber Number Group Number Insured Name Patient Relationship to Insured Coverage Start Date Coverage End Date MEDICARE PART B [address] [address] [place]up[place] m[place] [address] [id number] BEV PARSON Self - patient is the insured [facility] [employer] [address] [place], [place] [address]UNEZ [id number] [phone] [id number] BEV PARSON Self - patient is the insured Medications Administered Medication Instructions Date of Administration Dosage Notes Depo- Medrol 40 mg/ml 11/09/2015 1 mL Medical (General) History Medical History History ICD Code Hypertension Hyperlipidemia Hypothyroidism Esophageal Reflux Vitamin B 12 deficiency Osteoarthritis Psoriasis Colon Polyps allergic rhinitis Surgical History Surgery Date(Month/Year) Vaginal Hysterectomy Cholecystectomy LT Ankle Colonoscopy 2015 Hospitalization History Reason Date(Month/Year) Fall, Fractured RT Elbow - Dr. Bhatt- [facility] ER 11/06/2017 RT Leg Wound- [facility] ER 07/07/2012
[2025-02-07 23:31] VITALS: BP 169/75; PULSE 60; O2SAT 98
--- NOTE | 2025-02-07 23:31 | CT_ITS ---
PROCEDURE INFORMATION: Exam: CT Abdomen And Pelvis With Contrast Exam date and time: 02/08/2025 12:30 AM Age: 74 years old Clinical indication: Abdominal pain; Other: Llq; Additional info: Gradual progressive abd pain llq TECHNIQUE: Imaging protocol: Computed tomography of the abdomen and pelvis with contrast. Radiation optimization: All CT scans at this facility use at least one of these dose optimization techniques: automated exposure control; mA and/or kV adjustment per patient size (includes targeted exams where dose is matched to clinical indication); or iterative reconstruction. Contrast material: ISOVUE; Contrast volume: 75 ml; Contrast route: IV; COMPARISON: CR (HIP FROG LAT, HIP, HIP FROG LAT) 08/14/2018 12:33 PM FINDINGS: Lungs: Mild atelectasis in the lung bases. Heart: Mild cardiomegaly. Coronary arteries: Moderate coronary artery calcification in the LAD distribution. Esophagus: The visualized distal esophagus is largely contracted without gross abnormality. Liver: Granulomatous calcifications in the liver. Borderline mild hepatomegaly measuring 19 cm craniocaudal. Question mild hepatic steatosis. Normal contour. No mass lesions. No intrahepatic biliary ductal dilatation. Gallbladder and biliary ducts: Prior cholecystectomy with no significant dilatation of the common bile duct. Pancreas: Mild pancreatic atrophy without acute abnormality. No pancreatic ductal dilatation. Spleen: Normal. No splenomegaly. Adrenal glands: Right adrenal gland is normal. 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 It contains significant mature fat elements, however less than 50% of composition. Although myelolipoma considered statistically most likely, liposarcoma or fat containing adrenal cortical carcinoma could potentially produce this appearance. In a patient with no cancer history, consider resection. In a patient with cancer history, consider biopsy or PET-CT. (Reference: [facility]) Kidneys and ureters: No hydronephrosis or hydroureter. No urinary tract stones are identified. Small bilateral renal cortical cysts which do not require further evaluation. Indeterminate cortical lesion at the posterior upper pole of the left kidney measuring 5.5 x 5.1 x 5.1 cm, with average density 47 Hounsfield units, potentially complicated cyst although recommend nonemergent pre and postcontrast renal CT or MR to further characterize. Stomach and bowel: The stomach is largely contracted. The small bowel is nondilated with no gross abnormality. Mild diverticulosis in the proximal and distal colon with no evidence of diverticulitis. Ovoid fat density with local inflammation at the medial margin of the distal descending colon is consistent with acute epiploic appendagitis. Appendix: The appendix is normal in caliber and demonstrates no evidence of appendicitis. Intraperitoneal space: No peritoneal free fluid or air. Vasculature: No acute vascular abnormalities. Moderate calcific atherosclerosis. Lymph nodes: No adenopathy. Urinary bladder: Unremarkable as visualized. Reproductive: Prior hysterectomy. Bones/joints: No acute osseous abnormalities. Mild thoracolumbar spondylosis. Soft tissues: No acute soft tissue abnormalities. Very small fatty umbilical hernia . No evidence of associated bowel herniation or strangulation. IMPRESSION: 1. Epiploic appendagitis along the medial margin of the distal descending colon. 2. There is a 5.1 cm left adrenal mass. Although it contains macroscopic fat, this composes less than 50% of the lesion and it is considered indeterminate. Please see recommendations above. 3. There is a 5.5 cm indeterminate left renal cortical lesion. Recommend nonemergent pre and postcontrast renal CT or MR to further characterize. 4. Mild colonic diverticulosis without diverticulitis. 5. Question mild hepatic steatosis. 6. Additional nonemergent findings detailed above. COMMENTS: Consistent with the [employer]'s Incidental Findings Committee white paper (J Am Flori Radiol 2018): Any incidental renal lesion less than 1 cm or classified as too small to characterize, or any incidental cystic renal lesion characterized as simple-appearing, is likely benign. No follow-up imaging is recommended for these lesions per consensus recommendations based on imaging criteria. REFERENCES: Samantha CONTRERAS et al. Management of Incidental Adrenal Masses: A White Paper of the ACR Incidental Findings Committee. J Am Flori Radiol. 2017;14(8):2091-2323.
[2025-02-07 23:43] LABS: Bacteria,Urine Trace /lpf; RBC,Urine Occasional #/hpf (0-3)
[2025-02-07] MEDS: LACTATED RINGERS 1000ML 1,000 ML 999 ML IV (23:46)
[2025-02-08 00:01] VITALS: BP 169/67; PULSE 57; RESP 14; O2SAT 99
[2025-02-08 00:06] LABS: Lipase 113 U/L (23-300)
--- NOTE | 2025-02-08 00:07 | [facility].EDGENADL ---
Discharge Plan Disposition Patient Disposition: Home, Self-Care Condition: Good Prescriptions Prescriptions: New cefdinir 300 mg capsule 300 mg PO BID 5 Days Qty: 10 0RF No Action amlodipine 5 mg tablet 5 mg PO Qty: 90 Patient Comments: TAKE 1 TABLET BY MOUTH EVERY DAY losartan 100 mg tablet 100 mg PO Qty: 90 Patient Comments: TAKE 1 TABLET BY MOUTH EVERY DAY cyanocobalamin (vitamin B-12) 500 mcg tablet extended release 500 mcg PO DAILY hydrochlorothiazide 12.5 mg tablet 12.5 mg PO Qty: 90 Patient Comments: TAKE 1 TABLET BY MOUTH EVERY DAY naproxen 500 mg tablet 500 mg PO BID PRN (Reason: pain) bisoprolol-hydrochlorothiazide 1 EACH tablet 1 each PO DAILY levothyroxine 100 MCG tablet 100 mg PO DAILY ranitidine HCl 150 MG capsule 150 mg PO BID Referrals Follow up/Referrals: Dominic Kelley MD [Primary Care Provider, Medical] - See instructions Activity Restrictions/Add. Instructions Additional Instructions/Restrictions: You were evaluated in the ER and are believed to be appropriate for discharge at this time. Take Tylenol or ibuprofen if needed for pain in the abdomen, do not exceed the recommended dose on the bottle. Drink water and eat a small snack each time you take these medications to avoid side effects. Take the prescribed antibiotics as directed, do not skip doses, do not stop taking them early. You have masses on your left kidney and adrenal gland. It is extremely important that you follow these up immediately. Please call your primary care doctor first thing Sunday morning and make an appointment for reevaluation and to schedule additional imaging and workup. He should also follow-up your abdominal pain. Return to the ER with any new, worsening, or otherwise concerning symptoms. Clinical Impressions Clinical Impression: Epiploic appendagitis, Left kidney mass, Adrenal mass, UTI (urinary tract infection) Instructions Patient Instructions: DI for Acute Abdominal Pain Print Language Print Language: [place]ian Discharge ED Provider: Artie Vasquez Adult HPI General Chief complaint: Abdominal Pain Stated complaint: abdominal pain on left side Time Seen by Provider: 02/07/25 23:30 Mode of Arrival: Ambulatory Source of Information: Patient Description of Symptoms (Recalled from ER Triage Doc. by RN): patient presents to ED for LLQ abdominal pain that started this morning and has worsened thorughout the day. she rates it 5/10 History of Present Illness HPI narrative: 74-year-old female with history of hypertension presents to the ER with left lower quadrant abdominal pain for the last 24 hours. Patient reports it is waxing and waning but has been getting progressively worse through the day. She denies nausea or vomiting. States she is having regular bowel movements that are normal in consistency for her. Nonbloody, nonmelanotic. Last bowel movement was in the last 24 hours. Denies dysuria or hematuria. Denies fevers or chills. No chest pain or difficulty breathing. States she currently has no pain but states before she came to the ER when she would push on the left lower quadrant it was tender enough that it made her jump. She denies any rash or superficial skin tenderness. Denies any radiation of pain. Nothing specific seems to make it better or worse though it is absent at this time. No other complaints or concerns. Related Data Home Medications ?Medication ?Instructions ?Recorded ?Confirmed bisoprolol 5 1 each PO DAILY Hypertension 11/06/17 10/17/18 mg-hydrochlorothiazide 6.25 mg tablet levothyroxine 100 mcg tablet 100 mg PO DAILY THYROID 11/06/17 10/17/18 ranitidine HCl 150 mg capsule 150 mg PO BID STOMACH 11/06/17 10/17/18 amlodipine 5 mg tablet 5 mg PO #90 tabs 09/23/18 10/17/18 cyanocobalamin (vitamin B-12) 500 500 mcg PO DAILY 09/23/18 10/17/18 mcg tablet,extended release hydrochlorothiazide 12.5 mg tablet 12.5 mg PO #90 tabs 09/23/18 10/17/18 losartan 100 mg tablet 100 mg PO #90 tabs 09/23/18 10/17/18 naproxen 500 mg tablet 500 mg PO BID PRN pain 09/23/18 10/17/18 Previous Rx's ?Medication ?Instructions ?Recorded cefdinir 300 mg capsule 300 mg PO BID 5 days #10 caps 02/08/25 Allergies Allergy/AdvReac Type Severity Reaction Status Date / Time codeine (CODEINE) Allergy Mild NA-NAUSEA/V Verified 10/17/18 08:22 OMITING PERRY INHIBITORS Allergy Mild TONGUE Uncoded 12/07/17 09:53 [facility] Disclaimer: The information contained in this section may have been updated after the patient was seen, as this information can be updated by other users. Social History Smoking Status: Never smoker alcohol intake: never current occupational status: retired Travel in the last 8 weeks?: None Have you lived/traveled outside [place] in past 30 days?: No Contact w/someone who lives/traveled outside [place] past 30 days?: No Exposure to someone with infectious disease in past 14 days?: No Do you have a fever (greater than 100.4 F or 38 C)?: No Have you tested positive for COVID-19?: No Exposed to someone with COVID-19 in past 14 days?: No Do you have a sore throat?: No Do you have a cough?: No Do you have any weakness?: No Do you have any diarrhea?: No Are you experiencing any unusual bleeding?: No Do you have any muscle aches/pain?: No Do you have any abdominal pain?: No Are you experiencing loss of taste or smell?: No Other Medical History Have you received the Flu Vaccine for this season: Yes Have you received the Pneumonia Vaccine: Yes ROS Obtained: Yes Systems reviewed as appropriate & no additional complaints except as documented Per HPI Physical Exam General General appearance: alert and in no apparent distress Head Head exam: atraumatic and normocephalic Eye Eye exam: Present PERRL and EOMI ENT ENT exam: Present mucous membranes moist Neck Neck exam: Present normal inspection and full ROM Chest Chest inspection: Present symmetric chest wall rise Respiratory Respiratory exam: Present normal lung sounds bilaterally; Absent respiratory distress, wheezes or stridor Cardiovascular Cardiovascular exam: Present regular rate and normal rhythm Abdominal Exam Abdominal exam: Present soft; Absent distention, tenderness, guarding or rebound Comment: Completely benign, nontender abdominal exam Extremities Exam Extremities exam: Present full ROM Neurological Exam Neurological exam: Present alert and oriented X3; Absent motor sensory deficit Psychiatric Psychiatric exam: Present normal affect and normal mood Skin Skin exam: Present warm and dry Medical Decision Making Medical Records Medical records reviewed: Yes I reviewed the patient's medical records. Screening: Per USPSTF and CDC recommendations, given the prevalence of disease in our region, it is our hospital?s policy to screen for HIV and viral Hepatitis for all patients aged 18 and over and those with ongoing risk factors. Mike Inquiry Pt receiving controlled substance: No Vital Signs: 02/07/25 23:08 02/07/25 23:31 02/08/25 00:01 Temperature 98.5 F Temperature Source Temporal Artery Scan Pulse Rate 60 57 L Pulse Rate [Right Radial] 57 L Respiratory Rate 18 14 Blood Pressure 169/75 H 169/67 H Blood Pressure [Right Arm] 193/82 H Blood Pressure Mean 91 101 Blood Pressure Mean [Right Arm] 119 Blood Pressure Source [Right Arm] Automatic Cuff Blood Pressure Position [Right Arm] Sitting 02 Sat by Pulse Oximetry 100 98 99 Oxygen Delivery Method Room Air 02/08/25 01:01 02/08/25 01:31 Temperature Temperature Source Pulse Rate 58 L 56 L Pulse Rate [Right Radial] Respiratory Rate 14 14 Blood Pressure 155/66 H 146/67 H Blood Pressure [Right Arm] Blood Pressure Mean 92 93 Blood Pressure Mean [Right Arm] Blood Pressure Source [Right Arm] Blood Pressure Position [Right Arm] 02 Sat by Pulse Oximetry 96 Oxygen Delivery Method Lab Data Lab Results 02/07/25 23:12: Urine Color Yellow, Urine Appearance Clear, Urine pH 6.0, Ur Specific [place] 1.010, Urine Protein Negative, Urine Glucose (UA) Negative, Urine Ketones Negative, Urine Blood Negative, Urine Nitrate Negative, Urine Bilirubin Negative, Urine Urobilinogen 0.2, Ur Leukocyte Esterase 2+ A, Urine RBC Occasional, Urine WBC 10-20, Ur Squamous Epith Cells 5-10, Urine Bacteria Trace 02/07/25 23:40: WBC 7.6, RBC 4.46, Hgb 12.7, Hct 39.5, MCV 88.6, MCH 28.5, MCHC 32.2, RDW 13.5, Plt Count 213, MPV 10.8 H, Neut % (Auto) 71.5, Lymph % (Auto) 18.6, [place] % (Auto) 6.3, Eos % (Auto) 2.5, Baso % (Auto) 0.7, Neut # (Auto) 5.4, Lymph # (Auto) 1.4, [place] # (Auto) 0.5, Eos # (Auto) 0.2, Baso # (Auto) 0.1, PT 10.4, INR 0.93, Sodium 135 L, Potassium 4.1, Chloride 101, Carbon Dioxide 26, Anion Gap 12.1, BUN 19 H, Creatinine 1.20 H, Estimated Creat Clear 68, Estimated GFR 44 L, Est GFR ( Amer) 53 L, Glucose 126 H, Lactate 1.3, Calcium 9.1, Total Bilirubin 0.4, AST 29, ALT 29, Alkaline Phosphatase 138 H, Troponin I < 0.01, Total Protein 7.2, Albumin 4.2, Globulin 3.0, Albumin/Globulin Ratio 1.4, Lipase 113 02/07/25 23:40 02/07/25 23:40 Orders (Tests/Meds): ED MEDICATIONS Discontinued Medications Generic Name Dose Route Start Last Admin Trade Name Freq PRN Reason Stop Dose Admin Cefdinir 300 mg 02/08/25 00:50 02/08/25 01:16 Cefdinir 300mg Capsule PO 02/08/25 00:51 300 mg ONCE ONE Administration Lactated Ringer's 1,000 mls @ 999 mls/hr 02/07/25 23:30 02/07/25 23:46 Lactated Ringer's 1000 Ml Bag IV 02/08/25 00:30 999 mls/hr .Q1H1M ONE Administration Iopamidol 75 ml 02/08/25 00:38 02/08/25 00:39 Iopamidol-370 (76%);100ml Bottle IV 02/08/25 00:39 75 ml ONCE ONE Administration Morphine Sulfate 4 mg 02/07/25 23:30 Morphine 4mg/Ml Syringe IV 02/07/25 23:31 ONCE ONE Ondansetron HCl 4 mg 02/07/25 23:30 Ondansetron 4mg/2ml Vial IV 02/07/25 23:31 ONCE ONE Sodium Chloride 10 ml 02/08/25 00:38 02/08/25 00:39 Sodium Chloride 0.9% 10ml Syr (Rad Only) IV 02/08/25 00:39 10 ml ONCE ONE Administration ORDERS Category Date Time Status CT abdomen pelvis w con Stat Cat Scan 02/07/25 23:31 Completed Complete Blood Count Auto Diff Stat Lab 02/07/25 23:40 Completed Comprehensive Metabolic Panel Stat Lab 02/07/25 23:40 Completed Lactic Acid Stat Lab 02/07/25 23:40 Completed Lipase Stat Lab 02/07/25 23:40 Completed Prothrombin Time INR Stat Lab 02/07/25 23:40 Completed Troponin I Q3H Lab 02/08/25 02:45 Ordered Troponin I Q3H Lab 02/08/25 05:45 Ordered Troponin I Stat Lab 02/07/25 23:40 Completed UA [Urinalysis and Microscopic] Stat Lab 02/07/25 23:12 Completed Urine Culture Stat Micro 02/07/25 23:12 Received Medical Decision Narrative: In summary, this 74-year-old female with comorbidities described in the HPI presents to the emergency department today with left lower quadrant abdominal pain currently absent. On initial evaluation patient is hemodynamically stable, afebrile, GCS 15, physical exam notable for completely benign abdominal exam with no tenderness. Patient states she has no discomfort in the left lower quadrant at this time and overall her exam is nonfocal. Differential diagnosis includes but is not limited to diverticulosis, diverticulitis, urinary tract infection, pyelonephritis, kidney stone, enteritis, also considered muscle spasm or musculoskeletal etiology as well as shingles but I appreciate no rash, no skin tenderness. Finally I did consider the possibility of atypical presentation of ACS though I have extremely low suspicion for this based on these concerns, I ordered hematologic and serum labs, urinalysis, CT abdomen pelvis, cardiac workup. ECG personally interpreted demonstrates sinus rhythm, rate 60, borderline first-degree AV block with MI 221, normal axis, normal QTc, no STEMI. Patient was offered morphine and Zofran but declined it stating she is asymptomatic at this time. Labs personally reviewed demonstrate no leukocytosis or anemia, normal platelets, PT/INR normal, CMP not acutely actionable, patient has evidence of mild underlying kidney dysfunction with creatinine 1.2, 7 years ago it was 1.01. She is receiving IV fluids. Troponin undetectably low less than 0.01 significantly reassuring in the setting of nonischemic ECG, UA positive for leukocyte esterase and 10-20 WBCs as well as trace bacteria. Will treat as infection with cefdinir. CT abdomen pelvis personally interpreted demonstrates no acute surgical pathology, there does appear to be a mass on the adrenal gland and kidney on the left. See radiology read for full interpretation which comments on epiploic appendagitis, 5 cm masses on both the left kidney and adrenal gland with concerning appearance. On reassessment patient remains very comfortable, pain-free. We discussed all of her findings including suspected early UTI though with the renal masses I did discuss the possibility of mass causing the WBCs in the urine. Will treat with cefdinir and she is comfortable with this. I discussed the incidental findings of the adrenal and renal masses and impressed upon her the importance of following these up immediately with her primary care doctor for further workup due to the concern for possible malignancy though I explained to her we cannot tell for simply from CT imaging if a mass is cancerous in nature. She understands all of this. We discussed the epiploic appendagitis as well and I made recommendations for home management of this. Patient was given instructions on symptomatic monitoring and management, follow up instructions, and return precautions for the emergency department. Patient indicated understanding and was discharged in stable condition. Critical Care Critical Care Time Critical Care Time: No
[2025-02-08 00:13] LABS: INR 0.93 (0.9-1.1); Prothrombin Time 10.4 seconds (10.1-12.5)
[2025-02-08 00:14] LABS: Albumin Level 4.2 g/dl (3.5-5.0); Chloride 101 mmol/L (98-107)
[2025-02-08 00:15] LABS: Potassium 4.1 mmoL/L (3.5-5.1); Sodium 135 mmol/L (136-145)
[2025-02-08 00:17] LABS: Blood Urea Nitrogen 19 mg/dl (7-17); Creatinine Clearance Estimated 68 mL/min (50-200); Creatinine,Serum 1.20 mg/dl (0.52-1.04); Estimated Glomerular Filt Rate 44 ml/min (>60); GFR (African American) 53 ML/MIN (>60)
[2025-02-08 00:18] LABS: Alanine Aminotransferase 29 U/L (12-78); Albumin/Globulin Ratio 1.4 (1.1-1.8); Alkaline Phosphatase 138 U/L (38-126); Anion Gap 12.1 mEq/L (5-15); Aspartate Amino Transferase 29 U/L (14-36); Bilirubin,Total 0.4 mg/dl (0.2-1.3); Calcium 9.1 mg/dl (8.4-10.2); Carbon Dioxide 26 mmol/L (22.0-30.0); Globulin 3.0 g/dL (1.3-3.2); Glucose 126 mg/dl (74-100); Total Protein,Serum 7.2 g/dl (6.3-8.2)
[2025-02-08 00:19] LABS: Troponin I < 0.01 ng/ml (0.00-0.034)
[2025-02-08 00:25] LABS: Hematocrit 39.5 % (37.0-47.0); Hemoglobin 12.7 g/dL (12.2-16.2); Immature Granulocytes % 0.4 %; Mean Corpuscular HGB Conc 32.2 g/dL (31.8-35.4); Mean Corpuscular Hemoglobin 28.5 pg (27.0-31.2); Mean Corpuscular Volume 88.6 fl (81-99); Nucleated Red Blood Cells % 0 %; Platelet Count 213 K/mm3 (142-424); Red Blood Count 4.46 M/mm3 (4.20-5.40); Red Cell Distribution Width-SD 43.8 fL; White Blood Count 7.6 K/mm3 (4.8-10.8)
[2025-02-08] MEDS: IOPAMIDOL-370 (76%);100ML BOTTLE 75 ML IV (00:39)
[2025-02-08] MEDS: SODIUM CHLORIDE 0.9% 10ML SYR (RAD ONLY) 10 ML IV (00:39)
[2025-02-08 01:01] VITALS: BP 155/66; PULSE 58; RESP 14; O2SAT 96
[2025-02-08] MEDS: CEFDINIR 300MG CAPSULE 300 MG PO (01:16)
[2025-02-08 01:31] VITALS: BP 146/67; PULSE 56; RESP 14
[2025-02-08 01:57] VITALS: BP 146/67; PULSE 56; RESP 14; TEMP 36.9; O2SAT 98
--- NOTE | 2025-02-08 23:30 | ECG_ITS ---
APPROVED REPORT Exam: Resting ECG HR:60 bpm ECG Measurements Heart Rate 60 AXES ND 221 P 87 QRSd 102 QRS 11 QT 414 T 64 QTc 415 Conclusion SINUS RHYTHM WITH FIRST DEGREE AV BLOCK No STEMI Electronically signed by : FANY LOWRY, 02/08/2025 04:05:13
== END 2025-02-08 01:58 | disposition home or self-care (01) ==
PROVIDERS: Emergency Medicine; Emergency Provider Student in an Organized Health Care Education/Training Program; PCP Family Medicine
DX: K63.89 Other specified diseases of intestine (principal); N39.0 Urinary tract infection, site not specified; N28.89 Other specified disorders of kidney and ureter; E27.8 Other specified disorders of adrenal gland
CPT/HCPCS: 74177; 80053; 81001; 83605; 83690; 84484; 85025; 85610; 87086; 93005; 96365; 99285; J7120; Q9967

== ENCOUNTER 2025-02-17 06:39 | Outpatient (CLI) | payer MEDICARE, SELFPAY ==
[2025-02-23 20:14] LABS: Renin Activity, Plasma 1.404 ng/mL/hr (0.167-5.380)
== END 2025-02-17 23:59 | disposition home or self-care (01) ==
LOC: LAB 06:42
PROVIDERS: PCP Family Medicine; Visit Provider Family Medicine
DX: E27.8 Other specified disorders of adrenal gland (principal)
CPT/HCPCS: 36415; 82088; 82533; 83835; 84244